=== PATIENT | male | born 1940 | race Two or more races ===

== ENCOUNTER 2017-03-14 19:15 | Inpatient (IN) | payer MEDICARE, MEDICAID ==
[~2017-03-14] VITALS: Ht 177.8 cm; Wt 59.9 kg
--- NOTE | 2017-03-14 19:20 | Emergency Room Report ---
History of Present Illness General Chief Complaint: Abnormal Labs Source: Patient, EMS Present Illness HPI Patient presents with complaints of right hip abscess Patient reports that over the past few days the area has become larger in size and more painful Patient denies any vomiting or diarrhea Denies any chest pain or shortness of breath Pain is 6/10 Unknown regarding recent or previous surgery Unknown regarding the source of infection Allergies: Coded Allergies: No Known Allergies (Unverified , 03/14/17) Patient History Past Medical History: see triage record Pertinent Family History: none Reviewed Nursing Documentation: PMH: Agreed, PSxH: Agreed Review of Systems All Other Systems: negative except mentioned in HPI Physical Exam Vital Signs Date Time Temp Pulse Resp B/P (MAP) Pulse Ox O2 Delivery O2 Flow Rate FiO2 03/14/17 19:08 98.1 86 18 129/66 99 Room Air Sp02 EP Interpretation: reviewed, normal General Appearance: no apparent distress Head: normocephalic, atraumatic Eyes: bilateral eye PERRL, bilateral eye EOMI ENT: hearing grossly normal, normal pharynx Neck: supple Respiratory: lungs clear, normal breath sounds Cardiovascular #1: normal peripheral pulses, regular rate, rhythm Gastrointestinal: non tender, other - Evidence of ascites mild distention Musculoskeletal: swelling - Swelling and erythema to the right external pelvic area, there is a large fluctuant area with pustule noted, area is approximately 8 x 4 cm Neurologic: alert, oriented x3 Skin: other - As above, large right-sided pelvic abscess Lymphatic: no adenopathy Medical Decision Making Diagnostic Impression: Primary Impression: Abscess Additional Impressions: Sepsis Renal failure Hyperkalemia ER Course Consideration for sepsis is made Patient's lactic acid is high and therefore severe sepsis also needs to be considered Patient's kidney function is elevated patient was provided with aggressive IV hydration antibiotics and provided Consultation is made with primary physician along with general surgery Labs Test 03/14/17 19:30 03/14/17 19:52 03/14/17 20:46 White Blood Count 14.4 K/UL (4.8-10.8) Red Blood Count 2.62 M/UL (4.70-6.10) Hemoglobin 8.1 G/DL (14.2-18.0) Hematocrit 25.3 % (42.0-52.0) Mean Corpuscular Volume 97 FL (80-99) Mean Corpuscular Hemoglobin 31.1 PG (27.0-31.0) Mean Corpuscular Hemoglobin Concent 32.2 G/DL (32.0-36.0) Red Cell Distribution Width 13.7 % (11.6-14.8) Platelet Count 106 K/UL (150-450) Mean Platelet Volume 8.3 FL (6.5-10.1) Neutrophils (%) (Auto) 84.1 % (45.0-75.0) Lymphocytes (%) (Auto) 7.5 % (20.0-45.0) Monocytes (%) (Auto) 7.5 % (1.0-10.0) Eosinophils (%) (Auto) 0.3 % (0.0-3.0) Basophils (%) (Auto) 0.6 % (0.0-2.0) Sodium Level 130 MMOL/L (136-145) Potassium Level 5.5 MMOL/L (3.5-5.1) Chloride Level 102 MMOL/L (98-107) Carbon Dioxide Level 20 MMOL/L (21-32) Anion Gap 8 mmol/L (5-15) Blood Urea Nitrogen 31 mg/dL (7-18) Creatinine 2.1 MG/DL (0.55-1.30) Estimat Glomerular Filtration Rate mL/min (>60) Glucose Level 172 MG/DL (74-106) Lactic Acid Level 3.30 mmol/L (0.66-2.22) Calcium Level 8.2 MG/DL (8.5-10.1) Total Bilirubin 0.8 MG/DL (0.2-1.0) Aspartate Amino Transf (AST/SGOT) 45 U/L (15-37) Alanine Aminotransferase (ALT/SGPT) 24 U/L (12-78) Alkaline Phosphatase 163 U/L (46-116) Total Creatine Kinase 58 U/L (26-308) Creatine Kinase MB 1.3 NG/ML (0.0-3.6) Creatine Kinase MB Relative Index 2.2 Troponin I 0.005 ng/mL (0.000-0.056) Total Protein 7.8 G/DL (6.4-8.2) Albumin 1.7 G/DL (3.4-5.0) Globulin 6.1 g/dL Albumin/Globulin Ratio 0.3 (1.0-2.7) Urine Color Yellow Urine Appearance Clear Urine pH 5 (4.5-8.0) Urine Specific [place] 1.010 (1.005-1.035) Urine Protein 2+ (NEGATIVE) Urine Glucose (UA) Negative (NEGATIVE) Urine Ketones 1+ (NEGATIVE) Urine Occult Blood 5+ (NEGATIVE) Urine Nitrite Negative (NEGATIVE) Urine Bilirubin Negative (NEGATIVE) Urine Urobilinogen Normal MG/DL (0.0-1.0) Urine Leukocyte Esterase 1+ (NEGATIVE) Urine RBC 10-15 /HPF (0 - 0) Urine WBC 5-10 /HPF (0 - 0) Urine Squamous Epithelial Cells Few /LPF (NONE/OCC) Urine Bacteria Occasional /HPF (NONE) Rhythm Strip Diag. Results EP Interpretation: yes Rate: 66 Rhythm: NSR, no PVC's, no ectopy Chest X-Ray Diagnostic Results Chest X-Ray Diagnostic Results : Chest X-Ray Ordered: Yes # of Views/Limited/Complete: 1 View Indication: Chest Pain EP Interpretation: Yes Interpretation: no consolidation, no effusion, no pneumothorax Impression: No acute disease Electronically Signed by: Edin Goodman, DO CT/MRI/US Diagnostic Results CT/MRI/US Diagnostic Results : Impression CT abdomen pelvis:Heterogeneous fluid collection right hip measures 2 x 4 cm area of possible infection versus hematoma versus complex fluid Last Vital Signs Date Time Temp Pulse Resp B/P (MAP) Pulse Ox O2 Delivery O2 Flow Rate FiO2 03/14/17 19:08 98.1 86 18 129/66 99 Room Air Status: improved Disposition: ADMITTED INPATIENT Condition: Serious EDIN GOODMAN D.O. Mar 14, 2017 19:20
[2017-03-14] MEDS ORDERED: Vancomycin 1 GM in NS 275 ML IV ONE (19:30)
[2017-03-14 19:42] VITALS: BP 112/58
[2017-03-14] MEDS ORDERED: NUTREN 2.0250 ML PO (19:46)
[2017-03-14] MEDS ORDERED: VITAMIN C500 M1 ORAL (19:46)
[2017-03-14] MEDS ORDERED: PANTOPRAZOLE SO40 MG ORAL (19:46)
[2017-03-14] MEDS ORDERED: CREON DR 12,001 EACH PO (19:46)
[2017-03-14] MEDS ORDERED: ZOLPIDEM TARTRAT5 MG ORAL (19:46)
[2017-03-14] MEDS ORDERED: NORCO 5-325 TA1 EAC1 ORAL (19:46)
[2017-03-14] MEDS ORDERED: ZOFRAN4 M3 ORAL (19:46)
[2017-03-14] MEDS ORDERED: TYLENOL325 MG ORAL (19:46)
[2017-03-14] MEDS ORDERED: CEPHALEXIN500 MG ORAL (19:46)
[2017-03-14] MEDS ORDERED: FERROUSUL325 M1 PO (19:46)
[2017-03-14] MEDS ORDERED: LEXAPRO10 MG ORAL (19:46)
[2017-03-14] MEDS ORDERED: DOCUSATE SODIU100 MG ORAL (19:46)
[2017-03-14 19:55] LABS: BASOPHILS % (AUTO) 0.6 % (0.0-2.0); EOSINOPHILS % (AUTO) 0.3 % (0.0-3.0); LYMPHOCYTES % (AUTO) 7.5 % (20.0-45.0); MEAN CORPUSCULAR HEMOGLOBIN 31.1 PG (27.0-31.0); MEAN CORPUSCULAR HGB CONC 32.2 G/DL (32.0-36.0); MEAN CORPUSCULAR VOLUME 97 FL (80-99); MEAN PLATELET VOLUME 8.3 FL (6.5-10.1); MONOCYTES % (AUTO) 7.5 % (1.0-10.0); NEUTROPHILS % (AUTO) 84.1 % (45.0-75.0); PLATELET COUNT 106 K/UL (150-450); RED BLOOD COUNT 2.62 M/UL (4.70-6.10); RED CELL DISTRIBUTION WIDTH 13.7 % (11.6-14.8); WHITE BLOOD COUNT 14.4 K/UL (4.8-10.8)
[2017-03-14 19:59] LABS: APPEARANCE,URINE CLEAR; KETONES,URINE 1+ (NEGATIVE); LEUKOCYTE ESTERASE ,URINE 1+ (NEGATIVE); NITRITE,URINE NEGATIVE (NEGATIVE); PH,URINE 5 (4.5-8.0); PROTEIN,URINE 2+ (NEGATIVE); UROBILINOGEN,URINE NORMAL MG/DL (0.0-1.0)
[2017-03-14] MEDS ORDERED: Vancomycin 1gm inj IVPB ONE (19:59)
[2017-03-14] MEDS ORDERED: Zolpidem 5mg tab ORAL PRN (20:00)
[2017-03-14 20:07] LABS: BACTERIA,URINE OCCASIONAL /HPF; SQUAMOUS EPITHELIAL CELL,UR FEW /LPF (NONE/OCC)
[2017-03-14] MEDS ORDERED: cefTRIAXone 1 GM in NS 55 ML IVPB ONE (20:15)
[2017-03-14 20:18] LABS: ALANINE AMINOTRANSFERASE 24 U/L (12-78); ALBUMIN/GLOBULIN RATIO 0.3 (1.0-2.7); ANION GAP 8 mmol/L (5-15); ASPARTATE AMINO TRANSFERASE 45 U/L (15-37); CALCIUM 8.2 MG/DL (8.5-10.1); CARBON DIOXIDE 20 MMOL/L (21-32); CHLORIDE 102 MMOL/L (98-107); CREATININE 2.1 MG/DL (0.55-1.30); POTASSIUM 5.5 MMOL/L (3.5-5.1); SODIUM 130 MMOL/L (136-145); TOTAL PROTEIN 7.8 G/DL (6.4-8.2)
[2017-03-14 20:27] LABS: CKMB 1.3 NG/ML (0.0-3.6)
[2017-03-14 20:37] LABS: REFLEX LACTIC ACID YES OR NO YES
[2017-03-14] MEDS ORDERED: Sodium Polystyrene Sulfonate 15gm Powder ORAL ONE (20:45)
[2017-03-14] MEDS ORDERED: METFORMIN HCL1000 M1 ORAL (21:02)
[2017-03-14] MEDS ORDERED: ESCITALOPRAM OX10 MG ORAL (21:03)
[2017-03-14 21:16] VITALS: BP 130/65
[2017-03-14 22:22] VITALS: BP 125/58
[2017-03-14 22:45] VITALS: BP 137/86
[2017-03-14] MEDS: Norco 5mg/325mg tab ORAL PRN (22:59)
[2017-03-15 04:00] VITALS: BP 104/60
[2017-03-15 08:00] VITALS: BP 121/56
[2017-03-15 09:35] LABS: INR 1.4 (0.9-1.1); PROTHROMBIN TIME 14.3 SEC (9.30-11.50)
[2017-03-15 09:38] LABS: AMMONIA 25 umol/L (11.2-31.7)
[2017-03-15 09:40] LABS: ALANINE AMINOTRANSFERASE 19 U/L (12-78); ALBUMIN/GLOBULIN RATIO 0.3 (1.0-2.7); ANION GAP 10 mmol/L (5-15); ASPARTATE AMINO TRANSFERASE 28 U/L (15-37); CALCIUM 7.9 MG/DL (8.5-10.1); CARBON DIOXIDE 20 MMOL/L (21-32); CHLORIDE 102 MMOL/L (98-107); MEAN CORPUSCULAR HEMOGLOBIN 31.7 PG (27.0-31.0); MEAN CORPUSCULAR HGB CONC 33.6 G/DL (32.0-36.0); MEAN CORPUSCULAR VOLUME 94 FL (80-99); MEAN PLATELET VOLUME 8.1 FL (6.5-10.1); PLATELET COUNT 101 K/UL (150-450); POTASSIUM 5.2 MMOL/L (3.5-5.1); RED BLOOD COUNT 2.36 M/UL (4.70-6.10); RED CELL DISTRIBUTION WIDTH 13.8 % (11.6-14.8); SODIUM 132 MMOL/L (136-145); WHITE BLOOD COUNT 11.5 K/UL (4.8-10.8)
[2017-03-15] MEDS: Docusate 100mg cap ORAL SCH ×2 (09:44→18:00)
[2017-03-15] MEDS: Ascorbic Acid 500mg tab ORAL SCH (09:45)
[2017-03-15 10:47] LABS: ANISOCYTOSIS 1+; BAND NEUTROPHILS % (MANUAL) 0 % (0-8); BASOPHILS % (MANUAL) 0 % (0-2); EOSINOPHILS % (MANUAL) 0 % (0-3); HYPOCHROMASIA 3+; LYMPHOCYTES % (MANUAL) 2 % (20-45); NEUTROPHILS % (MANUAL) 95 % (45-75); PLATELET ESTIMATE DECREASED; PLATELET MORPHOLOGY NORMAL; SPHEROCYTES 2+; TOTAL CELLS COUNTED 100
[2017-03-15] MEDS: Norco 5mg/325mg tab ORAL PRN ×2 (11:15→20:24)
[2017-03-15 12:00] VITALS: BP 121/72
--- NOTE | 2017-03-15 12:08 | Diagnostic Imaging Report ---
Indication: Abdominal pain Technique: Continuous helical transaxial imaging of the abdomen and pelvis was obtained from the lung bases to the pubic symphysis. No intravenous contrast was administered. Coronal 2-D reformats were also obtained. Automatic Exposure Control was utilized. Total Dose length Product (DLP): [address] Dose Index Volume (CTDIvol): 19.07, 0.15 mGy Comparison: none Findings: There is moderate amount ascites present. There is nodularity of the liver and splenomegaly. Cholecystectomy clips are present. Suggestion of portosystemic varices in the upper abdomen demonstrated. Lung bases are clear. Small hiatal hernia is present. There is a ovoid mass in the retroperitoneum just posterior to the right kidney slightly above the. The mass has a similar attenuation of solid organ but is not well by on this current study. This may be a mass or adenopathy. It could be arising from the superior pole the right kidney. Further evaluation recommended. Calcific foci within the parenchyma of the uncinate process and pancreatic head. In the lateral part of the right hip there is a heterogeneous mass which is probably a hematoma. Portions of it are hyperdense. Portions of it are more fluid density and mixed density and this is seen in the subcutaneous space lateral to the muscles in the hip. There is no obvious fracture of the right hip or other structures. There is a small right inguinal hernia containing ascites. Diverticula noted in the colon. Aorta is moderately calcified. There is no hydronephrosis. Small retroperitoneal nodes are present. Diffuse mesenteric stranding noted. Moderate degenerative changes of the spine demonstrated. Impression: Superficial hematoma suspected lateral to the right hip. No obvious fracture of the right hip or other structures are definite seen on this examination. Moderate ascites associated with a cirrhosis of the liver. Moderate splenomegaly and evidence of portosystemic varices indicative of portal hypertension. Status post cholecystectomy Chronic calcific pancreatitis in the area of the pancreatic head and uncinate process. Atherosclerotic disease. Diverticulosis of the colon. [facility] has communicated the preliminary results to the Emergency Department. Their findings are largely concordant with this report. The CT scanner at [facility] is accredited by the [employer] and the scans are performed using dose optimization techniques as appropriate to a performed exam including Automatic Exposure control.
--- NOTE | 2017-03-15 13:01 | Diagnostic Imaging Report ---
Indication: Chest pain Comparison: None A single view chest radiograph was obtained. Findings: Heart is normal in size. Lung lines are low. Bones are osteopenic. There are surgical clips in the right side of abdomen. Impression: Query mild interstitial edema.
[2017-03-15] MEDS ORDERED: D5 1/2NS 1,000 ML IV SCH (15:30)
[2017-03-15 16:00] VITALS: BP 113/65
--- NOTE | 2017-03-15 17:04 | Anethesia Preoperative Eval ---
Anesthesia Pre-op PMH/ROS General Date of Evaluation: Mar 15, 2017 Time of Evaluation: 16:59 Anesthesiologist: Jona ASA Score: ASA 4 Mallampati Score Class I : Soft palate, uvula, fauces, pillars visible Class II: Soft palate, uvula, fauces visible Class III: Soft palate, base of uvula visible Class IV: Only hard plate visible Mallampati Classification: Class III Surgeon: Camron Diagnosis: R hip abscess Surgical Procedure: I&D of R hip abscess Anesthesia History: none Social History: smoking - h/o, alcohol use - h/o abuse, drug use - posible IVDA Family History: no anesthesia problems Allergies: Coded Allergies: No Known Allergies (Unverified , 03/14/17) Medications: see eMAR Past Medical History Cardiovascular: Reports: HTN, Denies: CAD, [place], valve dz, arrhythmia, other Pulmonary: Denies: asthma, COPD, CHARBEL, other Gastrointestinal/Genitourinary: Reports: GERD, CRI - acute vs chronic renal failure, other - liver cirrosis with ascitis, Denies: ESRD Neurologic/Psychiatric: Reports: depression/anxiety, Denies: dementia, CVA, TIA, other Endocrine: Reports: DM, hypothyroidism, Denies: steroids, other Hematology/Immune: Reports: anemia - of chronic d-s,, bleeding disorder - thrombocitopenia splenomegaly, Denies: DVT, other Musculoskeletal/Integumentary: Reports: DJD, Denies: OA, RA, DDD, edema, other Other: other - malnourished PMH Narrative: as above PSxH Narrative: cholecystectomy Anesthesia Pre-op Phys. Exam Physician Exam Last Vital Signs Date Time Temp Pulse Resp B/P (MAP) Pulse Ox O2 Delivery O2 Flow Rate FiO2 03/15/17 16:00 97.2 65 18 113/65 98 Room Air Constitutional: NAD Neurologic: CN 2-12 intact Cardiovascular: RRR, no M/R/G Respiratory: CTA Gastrointestinal: other - distended slightly tender on palpation Airway Exam Mallampati Score: Class III MO: limited Neck: stiff ROM: limited Teeth: missing Dentures: no upper, no lower Anesthesia Pre-op A/P Labs Hematology Test 03/14/17 19:30 03/15/17 09:10 White Blood Count 14.4 K/UL (4.8-10.8) H 11.5 K/UL (4.8-10.8) H Red Blood Count 2.62 M/UL (4.70-6.10) L 2.36 M/UL (4.70-6.10) L Hemoglobin 8.1 G/DL (14.2-18.0) L 7.5 G/DL (14.2-18.0) L Hematocrit 25.3 % (42.0-52.0) L 22.3 % (42.0-52.0) L Mean Corpuscular Volume 97 FL (80-99) 94 FL (80-99) Mean Corpuscular Hemoglobin 31.1 PG (27.0-31.0) H 31.7 PG (27.0-31.0) H Mean Corpuscular Hemoglobin Concent 32.2 G/DL (32.0-36.0) 33.6 G/DL (32.0-36.0) Red Cell Distribution Width 13.7 % (11.6-14.8) 13.8 % (11.6-14.8) Platelet Count 106 K/UL (150-450) L 101 K/UL (150-450) L Mean Platelet Volume 8.3 FL (6.5-10.1) 8.1 FL (6.5-10.1) Neutrophils (%) (Auto) 84.1 % (45.0-75.0) H % (45.0-75.0) Lymphocytes (%) (Auto) 7.5 % (20.0-45.0) L % (20.0-45.0) Monocytes (%) (Auto) 7.5 % (1.0-10.0) % (1.0-10.0) Eosinophils (%) (Auto) 0.3 % (0.0-3.0) % (0.0-3.0) Basophils (%) (Auto) 0.6 % (0.0-2.0) % (0.0-2.0) Differential Total Cells Counted 100 Neutrophils % (Manual) 95 % (45-75) H Lymphocytes % (Manual) 2 % (20-45) L Monocytes % (Manual) 3 % (1-10) Eosinophils % (Manual) 0 % (0-3) Basophils % (Manual) 0 % (0-2) Band Neutrophils 0 % (0-8) Platelet Estimate Decreased L Platelet Morphology Normal Hypochromasia 3+ Anisocytosis 1+ Spherocytes 2+ Coagulation Test 03/15/17 09:10 Prothrombin Time 14.3 SEC (9.30-11.50) H Prothromb Time International Ratio 1.4 (0.9-1.1) H Activated Partial Thromboplast Time 36 SEC (23-33) H Chemistry Test 03/14/17 19:30 03/14/17 20:46 03/15/17 09:10 Sodium Level 130 MMOL/L (136-145) L 132 MMOL/L (136-145) L Potassium Level 5.5 MMOL/L (3.5-5.1) H 5.2 MMOL/L (3.5-5.1) H Chloride Level 102 MMOL/L (98-107) 102 MMOL/L (98-107) Carbon Dioxide Level 20 MMOL/L (21-32) L 20 MMOL/L (21-32) L Anion Gap 8 mmol/L (5-15) 10 mmol/L (5-15) Blood Urea Nitrogen 31 mg/dL (7-18) H 30 mg/dL (7-18) H Creatinine 2.1 MG/DL (0.55-1.30) H 2.0 MG/DL (0.55-1.30) H Estimat Glomerular Filtration Rate mL/min (>60) mL/min (>60) Glucose Level 172 MG/DL (74-106) H 231 MG/DL (74-106) H Lactic Acid Level 3.30 mmol/L (0.66-2.22) H 2.00 mmol/L (0.66-2.22) Calcium Level 8.2 MG/DL (8.5-10.1) L 7.9 MG/DL (8.5-10.1) L Total Bilirubin 0.8 MG/DL (0.2-1.0) 0.7 MG/DL (0.2-1.0) Aspartate Amino Transf (AST/SGOT) 45 U/L (15-37) H 28 U/L (15-37) Alanine Aminotransferase (ALT/SGPT) 24 U/L (12-78) 19 U/L (12-78) Alkaline Phosphatase 163 U/L (46-116) H 147 U/L (46-116) H Total Creatine Kinase 58 U/L (26-308) Creatine Kinase MB 1.3 NG/ML (0.0-3.6) Creatine Kinase MB Relative Index 2.2 Troponin I 0.005 ng/mL (0.000-0.056) Total Protein 7.8 G/DL (6.4-8.2) 7.0 G/DL (6.4-8.2) Albumin 1.7 G/DL (3.4-5.0) L 1.6 G/DL (3.4-5.0) L Globulin 6.1 g/dL 5.4 g/dL Albumin/Globulin Ratio 0.3 (1.0-2.7) L 0.3 (1.0-2.7) L Ammonia 25 umol/L (11.2-31.7) Risk Assessment & Plan Assessment: ASA 4 Plan: GA with LMA Pre-Antibiotics Drug: as scheduled GABBY LOPES M.D. Mar 15, 2017 17:04
[2017-03-15 20:00] VITALS: BP 129/76
[2017-03-15] MEDS ORDERED: Vancomycin 750mg/NS 250ml 250 ML IVPB SCH (20:00)
--- NOTE | 2017-03-15 21:30 | Consultation ---
DATE OF CONSULTATION: 03/15/2017 PREOPERATIVE CONSULTATION CONSULTING PHYSICIAN: Puja Lyon M.D. REASON FOR CONSULTATION: Abscess of the right hip. HISTORY OF PRESENT ILLNESS: This is a 76-year-old male, who presented to emergency room complaining of the pain and swelling at the right hip for few days. Apparently, it has been draining for few days. He denies fever or chills. He denies any previous history of similar episode. PAST MEDICAL HISTORY: He denies allergies, asthma, diabetes, and cardiac and renal diseases. He has a history of hypertension and cirrhosis of the liver. PAST SURGICAL HISTORY: Surgeries include open cholecystectomy. MEDICATIONS: Please see the medicine reconciliation form. SOCIAL HISTORY: The patient is a 76-year-old male, resident of a detention, who is and father of three children. He claims that he quit drinking one year ago. He does claim that he does not smoke. REVIEW OF SYSTEMS: He complains of weakness. He is unable to get out of the bed and he had weight loss. PHYSICAL EXAMINATION: GENERAL: The patient appeared to be a cachectic 76-year-old male, lying on the gurney, in no acute distress. HEENT: Head is normocephalic and atraumatic. Eyes, pupils are equal and sluggish reaction to light. Mouth is clear, but dry. NECK: There is no palpable thyromegaly or adenopathy. CHEST: Clear to auscultation and percussion. HEART: There is no gallop or murmur. S1 and S2 are within normal limits. ABDOMEN: He has a very large ascites and he has scar of the two incisions in the right upper quadrant. There is no palpable organomegaly. There is no tenderness. GENITAL: He has indwelling Cabello catheter. EXTREMITIES: At the right hip, he has a large abscess, which has been draining. LABORATORY DATA: CBC has shown a WBC of 14,400 with a left shift, but hemoglobin is 8.1 g and hematocrit is 25%. Chemistry shown a potassium of 5.5, glucose of 172, creatinine of 2.1 with a BUN of 31, and the rest of it is within normal limits. ASSESSMENT: Abscess of the right hip. PLAN: The patient has been scheduled for the incision and drainage of the abscess of the right hip. The risks and benefits have been explained to him. He understood and granted consent. Puja Lyon M.D. DR: ALLISON JOB#: [id number] CC:
[2017-03-15 23:34] LABS: APPEARANCE,URINE CLEAR; KETONES,URINE NEGATIVE (NEGATIVE); LEUKOCYTE ESTERASE ,URINE NEGATIVE (NEGATIVE); NITRITE,URINE NEGATIVE (NEGATIVE); PH,URINE 6 (4.5-8.0); PROTEIN,URINE 1+ (NEGATIVE); UROBILINOGEN,URINE NORMAL MG/DL (0.0-1.0)
[2017-03-15 23:54] LABS: RBC,URINE 30-40 /HPF (0 - 0)
[2017-03-15 23:55] LABS: WBC,URINE 0-2 /HPF (0 - 0)
[2017-03-16] VITALS (16 sets, daily range): BP systolic 108–138; BP diastolic 54–87
[2017-03-16] MEDS: Norco 5mg/325mg tab ORAL PRN (01:47)
[2017-03-16 07:10] LABS: BASOPHILS % (AUTO) 0.8 % (0.0-2.0); EOSINOPHILS % (AUTO) 1.5 % (0.0-3.0); LYMPHOCYTES % (AUTO) 6.8 % (20.0-45.0); MEAN CORPUSCULAR HEMOGLOBIN 29.8 PG (27.0-31.0); MEAN CORPUSCULAR HGB CONC 31.4 G/DL (32.0-36.0); MEAN CORPUSCULAR VOLUME 95 FL (80-99); MEAN PLATELET VOLUME 8.3 FL (6.5-10.1); MONOCYTES % (AUTO) 6.4 % (1.0-10.0); NEUTROPHILS % (AUTO) 84.5 % (45.0-75.0); PLATELET COUNT 104 K/UL (150-450); RED BLOOD COUNT 2.72 M/UL (4.70-6.10); RED CELL DISTRIBUTION WIDTH 16.7 % (11.6-14.8); WHITE BLOOD COUNT 8.4 K/UL (4.8-10.8)
--- NOTE | 2017-03-16 07:30 | History and Physical Report ---
DATE OF ADMISSION: 03/14/2017 CHIEF COMPLAINT AND REASON FOR HOSPITALIZATION: The patient is a 76-year-old man with cirrhosis and COPD, admitted with abscess right hip. HISTORY OF PRESENT ILLNESS: The patient has cirrhosis and ascites and was recently in another hospital, transferred to an extended care facility for rehab as he had difficulty walking. He has peripheral neuropathy. He has developed a hematoma and abscess lateral to the right hip and due to pain was sent to the emergency room. He has had a chronic anemia, likely iron deficiency, and had recent transfusion at another hospital and recent GI workup. PAST SURGICAL HISTORY: Gallbladder. ALLERGIES: None known. CURRENT MEDICATIONS: Aldactone 50 mg b.i.d., Creon 1 capsule with meals, DSS 100 mg b.i.d., Lexapro 5 mg daily, ferrous sulfate 325 mg b.i.d., Keflex 500 mg t.i.d., Cuddy p.r.n., Protonix 40 mg daily, Pro-Stat 30 mL daily, Tylenol p.r.n., vitamin C 500 mg daily, Zofran 4 mg p.r.n., and zolpidem 5 mg at bedtime p.r.n. HABITS: He has been a smoker most of his adult life. He has had a history of alcoholism. SYSTEM REVIEW: HEAD, EYES, EARS, NOSE, AND THROAT: Vision and hearing are good. ENDOCRINE: No known diabetes or thyroid disease. PULMONARY: History of COPD and bronchospasm. He still smokes. CARDIAC: No angina, [place], arrhythmias, or CHF. GASTROINTESTINAL: History of chronic ascites and cirrhosis and some chronic abdominal pain. Recent GI evaluation. He is on Protonix. GENITOURINARY: No dysuria, hematuria, or kidney stones. NEUROLOGIC: No CVA, syncope, or seizures. He has peripheral neuropathy with numbness and pain in the feet. MUSCULOSKELETAL: History of generalized weakness and mild joint pain. PHYSICAL EXAMINATION: GENERAL: The patient is a thin, chronically ill-appearing man, looking uncomfortable in bed. VITAL SIGNS: Temperature 98.2, pulse 86, respirations 18, and and blood pressure 121/56. HEAD, EYES, EARS, NOSE, AND THROAT: Oral mucosa slightly dry. Ocular motions intact in all directions. There is no scleral icterus. NECK: No adenopathy. LUNGS: Clear. Distant breath sounds. HEART: Rhythm is regular. I hear no murmur. ABDOMEN: Moderate ascites. Liver is about 2 cm below the right costal margin. I am unable to feel the spleen. EXTREMITIES: Trace edema and moderate muscle wasting. SKIN: There is a hematoma with erythema of right lateral hip with a whitish eschar over the outer surface. NEUROLOGIC: He is alert and oriented. Cranial nerves are intact. He moves all extremities. PERTINENT LABORATORY DATA: Sodium 132, potassium 5.2, BUN 30, creatinine 2, and glucose is 231. White count 11.5 and hemoglobin 7.5. INR 1.4. IMPRESSION: 1. Hematoma and abscess lateral to the right hip. 2. Cirrhosis with ascites. 3. Acute kidney injury secondary to diuretics and possible hepatorenal syndrome. 4. Coagulopathy vitamin K. 5. Chronic obstructive pulmonary disease. PLAN: The patient will have surgical consultation. He has been started on vancomycin and comfort measures. I will hold his diuretics for right now, but he likely will need them again. Chano Cramer M.D. DR: LISA JOB#: [id number] CC:
[2017-03-16 07:32] LABS: ANION GAP 10 mmol/L (5-15); CALCIUM 7.8 MG/DL (8.5-10.1); CARBON DIOXIDE 18 MMOL/L (21-32); CHLORIDE 105 MMOL/L (98-107); CREATININE 1.9 MG/DL (0.55-1.30); POTASSIUM 4.6 MMOL/L (3.5-5.1); SODIUM 132 MMOL/L (136-145)
[2017-03-16] MEDS: Docusate 100mg cap ORAL SCH ×2 (08:36→18:34)
[2017-03-16] MEDS: Ascorbic Acid 500mg tab ORAL SCH (08:37)
--- NOTE | 2017-03-16 09:19 | General Progress Note ---
Assessment/Plan Problem List: (1) Iron deficiency anemia ICD Codes: D50.9 - Iron deficiency anemia, unspecified SNOMED: 47101928 (2) COPD (chronic obstructive pulmonary disease) ICD Codes: J44.9 - Chronic obstructive pulmonary disease, unspecified SNOMED: 99768488 (3) Ascites ICD Codes: R18.8 - Other ascites SNOMED: 206740531 (4) Cirrhosis with alcoholism ICD Codes: K70.30 - Alcoholic cirrhosis of liver without ascites SNOMED: 671367782 (5) Abscess ICD Codes: L02.91 - Cutaneous abscess, unspecified SNOMED: 514994799 (6) Renal failure ICD Codes: N19 - Unspecified kidney failure SNOMED: 29245434 (7) Hyperkalemia ICD Codes: E87.5 - Hyperkalemia SNOMED: 34328944 Assessment/Plan transfusion ordered , venofer, stable for surgery Subjective Constitutional: Reports: weakness HEENT: Reports: no symptoms Cardiovascular: Reports: no symptoms Respiratory: Reports: cough Gastrointestinal/Abdominal: Reports: other - ascites Neurologic/Psychiatric: Reports: tingling, weakness Endocrine: Reports: no symptoms Hematologic/Lymphatic: Reports: anemia Allergies: Coded Allergies: No Known Allergies (Unverified , 03/14/17) Objective Last 24 Hour Vital Signs Date Time Temp Pulse Resp B/P (MAP) Pulse Ox O2 Delivery O2 Flow Rate FiO2 03/16/17 09:09 98.4 75 19 125/73 99 Room Air 03/16/17 04:00 97.7 79 19 113/57 98 Room Air 03/16/17 02:46 97.9 03/16/17 00:00 97.9 87 19 116/72 98 Room Air 03/15/17 20:00 98.1 78 18 129/76 100 Room Air 03/15/17 16:00 97.2 65 18 113/65 98 Room Air 03/15/17 12:00 98.0 77 18 121/72 96 Room Air Intake and Output 03/16/17 03/17/17 19:00 07:00 # Voids 1 # Bowel Movements 1 Laboratory Tests 03/15/17 18:10: Random Vancomycin Level 6.2 03/15/17 21:55: Urine Color Pale yellow, Urine Appearance Clear, Urine pH 6, Urine Specific [place] 1.010, Urine Protein 1+H, Urine Glucose (UA) Negative, Urine Ketones Negative, Urine Occult Blood 3+H, Urine Nitrite Negative, Urine Bilirubin Negative, Urine Urobilinogen Normal, Urine Leukocyte Esterase Negative, Urine RBC 30-40H, Urine WBC 0-2, Urine Squamous Epithelial Cells None, Urine Bacteria None, Urine Random Sodium 46, Urine Creatinine 57.5 03/16/17 06:05: White Blood Count 8.4, Red Blood Count 2.72L, Hemoglobin 8.1L, Hematocrit 25.8L , Mean Corpuscular Volume 95, Mean Corpuscular Hemoglobin 29.8, Mean Corpuscular Hemoglobin Concent 31.4L, Red Cell Distribution Width 16.7H, Platelet Count 104L, Mean Platelet Volume 8.3, Neutrophils (%) (Auto) 84.5H, Lymphocytes (%) (Auto) 6.8L, Monocytes (%) (Auto) 6.4, Eosinophils (%) (Auto) 1.5, Basophils (%) (Auto) 0.8, Sodium Level 132L, Potassium Level 4.6, Chloride Level 105, Carbon Dioxide Level 18L, Anion Gap 10, Blood Urea Nitrogen 29H, Creatinine 1.9H, Estimat Glomerular Filtration Rate , Glucose Level 167H, Calcium Level 7.8L Height (Feet): 5 Height (Inches): 10.00 Weight (Pounds): 132 General Appearance: alert EENT: normal ENT inspection Neck: normal alignment Cardiovascular: normal rate, regular rhythm Respiratory/Chest: lungs clear Abdomen: hepatomegaly, other - scites Edema: no edema noted Arm (L), no edema noted Arm (R), no edema noted Leg (L), no edema noted Leg (R), no edema noted Pedal (L), no edema noted Pedal (R), no edema noted Generalized 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
[2017-03-16] MEDS: D5 1/2NS 1,000 ML IV SCH ×2 (10:00→16:00)
[2017-03-16] MEDS ORDERED: Bacitracin 50000 Units Vial ONE (10:47)
[2017-03-16] MEDS ORDERED: NeoSporin Gu Irrig 1ml Amp IRRIG ONE (10:47)
[2017-03-16] MEDS ORDERED: LR 1000ml 1,000 ML IVLG SCH (11:33)
[2017-03-16] MEDS ORDERED: DiphenhydrAMINE 50mg/ml Inj IVP PRN (11:45)
[2017-03-16] MEDS ORDERED: Midazolam 2mg/2ml Inj IVP PRN (11:45)
[2017-03-16] MEDS ORDERED: LORazepam Inj 2mg/ml 1ml IV PRN (11:45)
[2017-03-16] MEDS ORDERED: oxyCODONE HCL/Acetaminophen 5/325mg ORAL PRN (11:45)
[2017-03-16] MEDS ORDERED: Ketorolac 30mg Inj IV PRN (11:45)
[2017-03-16] MEDS ORDERED: Norco 7.5mg/325mg tab ORAL PRN (11:45)
[2017-03-16] MEDS ORDERED: fentaNYL 100 mcg/2 mL IV PRN (11:45)
[2017-03-16] MEDS ORDERED: Norco 5mg/325mg tab ORAL PRN (11:45)
[2017-03-16] MEDS ORDERED: Hydromorphone 0.5mg/0.5ml inj IVP PRN (11:45)
[2017-03-16] MEDS ORDERED: Ketorolac 60mg Inj IM PRN (11:45)
[2017-03-16] MEDS ORDERED: Metoclopramide 10mg/2ml Inj IVP PRN (11:45)
[2017-03-16] MEDS ORDERED: Atropine Inj 1mg/10ml Syr IV PRN (11:45)
--- NOTE | 2017-03-16 11:46 | Immediate Post-Op Evaluation ---
Immediate Post-Op Evalulation Immediate Post-Op Evalulation Procedure: I and D R Hip Abcess Date of Evaluation: Mar 16, 2017 Time of Evaluation: 13:32 IV Fluids: 250 NS Blood Products: 0 Estimated Blood Loss: 50 Urinary Output: 0 Blood Pressure Systolic: 129 Blood Pressure Diastolic: 80 Pulse Rate: 74 Respiratory Rate: 16 O2 Sat by Pulse Oximetry: 100 Temperature (Fahrenheit): 98.1 Pain Score (1-10): 2 Nausea: No Vomiting: No Complications 0 Patient Status: awake, reacts, patent, none Hydration Status: adequate Drug: Already On From Floor Terrell Connelly MD Mar 16, 2017 11:46
[2017-03-16] MEDS ORDERED: Propofol 200mg/20ml IV ONE (11:54)
[2017-03-16] MEDS ORDERED: LR 1000ml ONE (11:54)
[2017-03-16] MEDS ORDERED: Lidocaine 1% MPF 10mg/ml 5ml ONE (11:54)
[2017-03-16] MEDS ORDERED: Midazolam 2mg/2ml Inj ONE (11:54)
[2017-03-16] MEDS ORDERED: ePHEDrine 50mg/ml Inj ONE (12:00)
[2017-03-16] MEDS ORDERED: Alfentanil 2ml Inj ONE (12:00)
[2017-03-16] MEDS ORDERED: Metoprolol 5mg/5ml Inj ONE (12:00)
[2017-03-16] MEDS ORDERED: Sodium Chloride 10ml vial INJ ONE (12:00)
[2017-03-16] MEDS ORDERED: NS Irrig 1000ml ONE (12:00)
[2017-03-16] MEDS ORDERED: Sterile Water Irrig 1000ml IRRIG ONE (12:00)
--- NOTE | 2017-03-16 12:26 | Pre-Procedure Note/Attestation ---
Pre-Procedure Note/Attestation Complete Prior to Procedure Planned Procedure: right Procedure Narrative: I&D of abscess right hip Indications for Procedure Pre-Operative Diagnosis: Abscess right hip Attestation I attest that I discussed the nature of the procedure; its benefits; risks and complications; and alternatives (and the risks and benefits of such alternatives ), prior to the procedure, with the patient (or the patient's legal payroll representative). I attest that, if there was a reasonable possibility of needing a blood transfusion, the patient (or the patient's legal payroll representative) was given the [facility] standardized written summary, pursuant to the Chaz Mor Blood Safety Act ([place] Health and Safety Code # 1645, as amended). I attest that I re-evaluated the patient just prior to the surgery and that there has been no change in the patient's H&P, except as documented below: TINY WATSON Mar 16, 2017 12:26
--- NOTE | 2017-03-16 13:13 | Brief Operative Note ---
Immediate Post Operative Note Operative Note Pre-op Diagnosis: Abscess right hip Procedure: I&D of abscesses Post-op Diagnosis: Abscess right hip X 2 Post-op Diagnosis: same as pre-op Surgeon: Yvonne Nurse Technician: none Anesthesiologist: Dr. Barbosa Anesthesia: general Specimen: yes Complications: none Condition: stable Fluids: per anesthiasologist Estimated Blood Loss: volume - 20 ml Packing: Betadine soaked sponge Implant(s) used?: No TINY WATSON Mar 16, 2017 13:13
[2017-03-16] MEDS ORDERED: HYDROmorphone 1mg/ml Carpuject IVP PRN (13:15)
[2017-03-16] MEDS ORDERED: D5 1/2NS 1,000 ML IV SCH ×2 (13:15)
[2017-03-16] MEDS ORDERED: traMADol 50mg tab ORAL PRN (13:15)
--- NOTE | 2017-03-16 14:47 | Diagnostic Imaging Report ---
Indication: Line placement Comparison: 03/14/17 A single view chest radiograph was obtained. Findings: Lung volumes are low. There is a right jugular line in good position. Bones are osteopenic. Impression: Right jugular line in good position. No pneumothorax
--- NOTE | 2017-03-16 18:30 | Operative Note - Dictated ---
DATE OF OPERATION: 03/16/2017 PREOPERATIVE DIAGNOSIS: Abscess of the right hip. POSTOPERATIVE DIAGNOSIS: Abscess x2 of the right hip. OPERATION: Incision and drainage of the abscesses. COMPLICATIONS: None. SURGEON: Puja Lyon M.D. TEACHER HEARING IMPAIRED: None. ANESTHESIA: General with laryngeal mask. ANESTHESIOLOGIST: Terrell Connelly M.D. INDICATION: This is a 76-year-old male, who presented with swelling, pain, and drainage from the right hip. The patient could not give accurate history, but he claimed that he has been having drainage for two to three days. Physical examination showed a partially drained abscess at the right hip, which had two openings. A large amount of pus was draining, and besides, he had erythema of the area. CBC on admission showed a WBC of 14,000 with a left shift. DESCRIPTION OF PROCEDURE: The patient was placed supine on the operating table and after general anesthesia with laryngeal mask, he was placed in the left decubitus position and the right hip was properly prepped and draped. Initially, culture was obtained from the pus and was submitted to the lab and then exploration was performed, which showed two openings on the area of the hip. The posterior one was approached initially and this opening was extended. A large amount of pus was drained, and then the necrotic tissue seen and subcutaneous tissue in this area was removed and the cavity was completely exposed. All the necrotic tissue was removed. The bleeding points were controlled with the Bovie and the cavity was irrigated with antibiotic solution. At the next step, attention was given to the opening on the anterior, which was small, but when it was extended, it was noticed that this was deep between the muscle and the tendons and the cavity was unroofed and the pus was drained. The bleeding points were controlled and then the cavity was irrigated with antibiotic solution. It should be noted that the posterior cavity extended up to the bone, but the anterior one as I explained was between the muscles and tendon. Both cavities were irrigated with antibiotic solution and then it was packed with Betadine-soaked sponge. The patient tolerated the procedure very well and was transferred to recovery room in stable condition and extubated. The sponge and needle count correct. Estimated blood loss 20 mL. Condition of the patient at the end of procedure is stable. Puja Lyon M.D. DR: RODNEY JOB#: [id number] CC:
[2017-03-16] MEDS: Vancomycin 500 MG in NS 110 ML IVPB SCH (19:57)
[2017-03-16] MEDS: Iron Sucrose 100 MG in NS 55 ML IV SCH ×2 (20:28→20:58)
[2017-03-17] VITALS: BP 102/71
[2017-03-17 04:00] VITALS: BP 122/71
[2017-03-17] MEDS: D5 1/2NS 1,000 ML IV SCH (06:00)
[2017-03-17 07:52] VITALS: BP 131/81
--- NOTE | 2017-03-17 07:56 | General Progress Note ---
Assessment/Plan Problem List: (1) Iron deficiency anemia ICD Codes: D50.9 - Iron deficiency anemia, unspecified SNOMED: 07705153 (2) COPD (chronic obstructive pulmonary disease) ICD Codes: J44.9 - Chronic obstructive pulmonary disease, unspecified SNOMED: 23843089 (3) Ascites ICD Codes: R18.8 - Other ascites SNOMED: 573153672 (4) Cirrhosis with alcoholism ICD Codes: K70.30 - Alcoholic cirrhosis of liver without ascites SNOMED: 632928769 (5) Abscess ICD Codes: L02.91 - Cutaneous abscess, unspecified SNOMED: 475310242 (6) Renal failure ICD Codes: N19 - Unspecified kidney failure SNOMED: 83055686 (7) Hyperkalemia ICD Codes: E87.5 - Hyperkalemia SNOMED: 75679747 Assessment/Plan g- rods, zosyn and vanco , wound care, trend lab Subjective Constitutional: Reports: weakness HEENT: Reports: no symptoms Cardiovascular: Reports: no symptoms Respiratory: Reports: no symptoms Gastrointestinal/Abdominal: Reports: other - ascites Genitourinary: Reports: no symptoms Neurologic/Psychiatric: Reports: weakness Endocrine: Reports: no symptoms Hematologic/Lymphatic: Reports: anemia Allergies: Coded Allergies: No Known Allergies (Unverified , 03/14/17) Objective Last 24 Hour Vital Signs Date Time Temp Pulse Resp B/P (MAP) Pulse Ox O2 Delivery O2 Flow Rate FiO2 03/17/17 07:52 97.7 92 18 131/81 96 Room Air 03/17/17 04:00 97.7 83 19 122/71 94 Room Air 03/17/17 00:00 97.3 81 18 102/71 97 Room Air 03/16/17 20:08 97.6 70 17 126/67 98 Room Air 03/16/17 15:35 98.4 77 20 121/79 96 Nasal Cannula 3.0 03/16/17 14:32 98.4 67 19 119/75 99 Nasal Cannula 3.0 03/16/17 14:20 98.8 66 14 127/76 100 Nasal Cannula 3.0 03/16/17 14:17 98.2 03/16/17 14:10 68 16 126/82 100 Nasal Cannula 3.0 03/16/17 13:55 67 15 130/80 100 Nasal Cannula 3.0 03/16/17 13:47 69 18 138/80 100 Nasal Cannula 3.0 03/16/17 13:40 70 16 124/84 100 Nasal Cannula 3.0 03/16/17 13:30 72 16 134/85 100 Simple Mask 6.0 03/16/17 13:26 74 14 134/87 100 Simple Mask 6.0 03/16/17 13:21 98.1 80 13 129/80 100 Simple Mask 6.0 03/16/17 13:20 74 16 100 03/16/17 11:17 97.2 70 18 110/63 97 Room Air 03/16/17 11:00 97.5 71 18 108/54 96 Room Air 03/16/17 09:09 98.4 75 19 125/73 99 Room Air Height (Feet): 5 Height (Inches): 10.00 Weight (Pounds): 132 General Appearance: no apparent distress, thin EENT: normal ENT inspection Neck: non-tender Cardiovascular: normal rate, regular rhythm Respiratory/Chest: lungs clear Abdomen: non tender, other - ascites Edema: no edema noted Arm (L), no edema noted Arm (R), no edema noted Leg (L), no edema noted Leg (R), no edema noted Pedal (L), no edema noted Pedal (R), no edema noted 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
[2017-03-17] MEDS ORDERED: Hydromorphone 0.5mg/0.5ml inj IVP PRN (08:15)
[2017-03-17] MEDS: Docusate 100mg cap ORAL SCH ×3 (08:27→17:07)
[2017-03-17] MEDS: Ascorbic Acid 500mg tab ORAL SCH (08:27)
[2017-03-17] MEDS: Norco 5mg/325mg tab ORAL PRN ×3 (08:31→20:54)
[2017-03-17 08:37] LABS: BASOPHILS % (AUTO) 1.3 % (0.0-2.0); EOSINOPHILS % (AUTO) 1.5 % (0.0-3.0); LYMPHOCYTES % (AUTO) 9.6 % (20.0-45.0); MEAN CORPUSCULAR HEMOGLOBIN 29.5 PG (27.0-31.0); MEAN CORPUSCULAR VOLUME 95 FL (80-99); MEAN PLATELET VOLUME 6.9 FL (6.5-10.1); MONOCYTES % (AUTO) 6.8 % (1.0-10.0); NEUTROPHILS % (AUTO) 80.9 % (45.0-75.0); PLATELET COUNT 129 K/UL (150-450); RED BLOOD COUNT 3.35 M/UL (4.70-6.10); RED CELL DISTRIBUTION WIDTH 16.7 % (11.6-14.8)
[2017-03-17 08:51] LABS: ANION GAP 8 mmol/L (5-15); CALCIUM 8.3 MG/DL (8.5-10.1); CARBON DIOXIDE 19 MMOL/L (21-32); CHLORIDE 105 MMOL/L (98-107); CREATININE 1.8 MG/DL (0.55-1.30); POTASSIUM 5.1 MMOL/L (3.5-5.1); SODIUM 132 MMOL/L (136-145)
[2017-03-17] MEDS ORDERED: Piperacillin/Tazobactam 3.375 GM in D5W 110 ML IVPB SCH (09:00)
[2017-03-17] MEDS: Zosyn 3.375gm/50ml Premix 50 ML IVPB SCH ×2 (09:43→17:17)
[2017-03-17] MEDS ORDERED: Tubing IV Secondary IV ONE (11:18)
[2017-03-17] MEDS ORDERED: D5 1/2NS 1000ml IV ONE (11:18)
[2017-03-17 12:00] VITALS: BP 126/75
--- NOTE | 2017-03-17 13:11 | General Surgery Progress Note ---
General Surgery-Progress Note Subjective Procedure Performed I&D of abscesses Symptoms: improved Objective Last 24 Hour Vital Signs Date Time Temp Pulse Resp B/P (MAP) Pulse Ox O2 Delivery O2 Flow Rate FiO2 03/17/17 12:00 97.7 20 126/75 98 Room Air 03/17/17 09:30 97.7 03/17/17 07:52 97.7 92 18 131/81 96 Room Air 03/17/17 04:00 97.7 83 19 122/71 94 Room Air 03/17/17 00:00 97.3 81 18 102/71 97 Room Air 03/16/17 20:08 97.6 70 17 126/67 98 Room Air 03/16/17 15:35 98.4 77 20 121/79 96 Nasal Cannula 3.0 03/16/17 14:32 98.4 67 19 119/75 99 Nasal Cannula 3.0 03/16/17 14:20 98.8 66 14 127/76 100 Nasal Cannula 3.0 03/16/17 14:17 98.2 03/16/17 14:10 68 16 126/82 100 Nasal Cannula 3.0 03/16/17 13:55 67 15 130/80 100 Nasal Cannula 3.0 03/16/17 13:47 69 18 138/80 100 Nasal Cannula 3.0 03/16/17 13:40 70 16 124/84 100 Nasal Cannula 3.0 03/16/17 13:30 72 16 134/85 100 Simple Mask 6.0 03/16/17 13:26 74 14 134/87 100 Simple Mask 6.0 03/16/17 13:21 98.1 80 13 129/80 100 Simple Mask 6.0 03/16/17 13:20 74 16 100 I&O Intake and Output 03/17/17 03/18/17 19:00 07:00 Intake Total 240 ml Balance 240 ml Intake Oral 240 ml Extremities: other - wound open no drainage Laboratory Tests Test 03/17/17 07:35 White Blood Count 8.0 K/UL (4.8-10.8) Red Blood Count 3.35 M/UL (4.70-6.10) L Hemoglobin 9.9 G/DL (14.2-18.0) L Hematocrit 31.8 % (42.0-52.0) L Mean Corpuscular Volume 95 FL (80-99) Mean Corpuscular Hemoglobin 29.5 PG (27.0-31.0) Mean Corpuscular Hemoglobin Concent 31.0 G/DL (32.0-36.0) L Red Cell Distribution Width 16.7 % (11.6-14.8) H Platelet Count 129 K/UL (150-450) L Mean Platelet Volume 6.9 FL (6.5-10.1) Neutrophils (%) (Auto) 80.9 % (45.0-75.0) H Lymphocytes (%) (Auto) 9.6 % (20.0-45.0) L Monocytes (%) (Auto) 6.8 % (1.0-10.0) Eosinophils (%) (Auto) 1.5 % (0.0-3.0) Basophils (%) (Auto) 1.3 % (0.0-2.0) Sodium Level 132 MMOL/L (136-145) L Potassium Level 5.1 MMOL/L (3.5-5.1) Chloride Level 105 MMOL/L (98-107) Carbon Dioxide Level 19 MMOL/L (21-32) L Anion Gap 8 mmol/L (5-15) Blood Urea Nitrogen 26 mg/dL (7-18) H Creatinine 1.8 MG/DL (0.55-1.30) H Estimat Glomerular Filtration Rate mL/min (>60) Glucose Level 130 MG/DL (74-106) H Calcium Level 8.3 MG/DL (8.5-10.1) L Assessment Post-op Diagnosis Abscess right hip X 2 Plan Additional Comments continue as before TINY WATSON Mar 17, 2017 13:11
--- NOTE | 2017-03-17 13:14 | 48 Hour Post Anesthesia Eval ---
Post Anesthesia Evaluation Procedure: I and D R Hip Abcess Date of Evaluation: Mar 17, 2017 Time of Evaluation: 13:13 Blood Pressure Systolic: 126 0: 74 Pulse Rate: 78 Respiratory Rate: 20 Temperature (Fahrenheit): 97.6 O2 Sat by Pulse Oximetry: 98 Airway: patent Nausea: No Vomiting: No Pain Intensity: 3 Hydration Status: adequate Cardiopulmonary Status: stable Mental Status/LOC: patient returned to baseline Follow-up Care/Observations: n/a Post-Anesthesia Complications: none Follow-up care needed: N/A GABBY LOPES M.D. Mar 17, 2017 13:14
[2017-03-17 15:43] VITALS: BP 147/90
[2017-03-17 20:39] VITALS: BP 117/69
[2017-03-17] MEDS: Vancomycin 500 MG in NS 110 ML IVPB SCH (20:55)
[2017-03-17] MEDS: Iron Sucrose 100 MG in NS 55 ML IV SCH (22:22)
[2017-03-18 00:16] VITALS: BP 113/61
[2017-03-18] MEDS: Zosyn 3.375gm/50ml Premix 50 ML IVPB SCH ×3 (00:47→17:10)
[2017-03-18 04:00] VITALS: BP 114/74
[2017-03-18] MEDS: Norco 5mg/325mg tab ORAL PRN ×3 (05:12→20:50)
[2017-03-18 07:44] LABS: BASOPHILS % (AUTO) 1.6 % (0.0-2.0); LYMPHOCYTES % (AUTO) 18.9 % (20.0-45.0); MEAN CORPUSCULAR HEMOGLOBIN 31.8 PG (27.0-31.0); MEAN CORPUSCULAR HGB CONC 34.5 G/DL (32.0-36.0); MEAN CORPUSCULAR VOLUME 92 FL (80-99); MEAN PLATELET VOLUME 8.1 FL (6.5-10.1); MONOCYTES % (AUTO) 9.1 % (1.0-10.0); NEUTROPHILS % (AUTO) 66.5 % (45.0-75.0); PLATELET COUNT 119 K/UL (150-450); RED BLOOD COUNT 2.92 M/UL (4.70-6.10); RED CELL DISTRIBUTION WIDTH 16.5 % (11.6-14.8); WHITE BLOOD COUNT 4.8 K/UL (4.8-10.8)
[2017-03-18 07:49] LABS: ANION GAP 8 mmol/L (5-15); CALCIUM 8.3 MG/DL (8.5-10.1); CARBON DIOXIDE 21 MMOL/L (21-32); CHLORIDE 107 MMOL/L (98-107); CREATININE 1.8 MG/DL (0.55-1.30); POTASSIUM 4.9 MMOL/L (3.5-5.1); SODIUM 135 MMOL/L (136-145)
[2017-03-18 08:15] VITALS: BP 122/79
[2017-03-18] MEDS: Docusate 100mg cap ORAL SCH ×4 (08:22→17:45)
[2017-03-18] MEDS: Ascorbic Acid 500mg tab ORAL SCH (08:22)
[2017-03-18] MEDS ORDERED: Tubing IV Secondary IV ONE ×2 (09:42→09:47)
[2017-03-18] MEDS ORDERED: NS 275ml ONE (09:42)
--- NOTE | 2017-03-18 10:22 | General Progress Note ---
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 2) S/P R hip abcess drainage 3) SHELL is improving 4) Doubt HRS Plan: Continue current measures Subjective Allergies: Coded Allergies: No Known Allergies (Unverified , 03/14/17) Subjective No c/p or sob, some pain on the site of surgery Objective Last 24 Hour Vital Signs Date Time Temp Pulse Resp B/P (MAP) Pulse Ox O2 Delivery O2 Flow Rate FiO2 03/18/17 08:15 98.8 83 21 122/79 97 Room Air 03/18/17 06:11 98.3 03/18/17 04:00 98.3 66 17 114/74 98 Room Air 03/18/17 00:16 98.4 74 18 113/61 96 Room Air 03/17/17 20:39 97.4 77 19 117/69 98 Room Air 03/17/17 15:43 98.0 88 20 147/90 99 Room Air 03/17/17 13:14 78 20 98 03/17/17 12:00 97.7 20 126/75 98 Room Air Intake and Output 03/18/17 03/19/17 19:00 07:00 Intake Total 480 ml Balance 480 ml Intake Oral 480 ml Laboratory Tests 03/18/17 06:01: White Blood Count 4.8, Red Blood Count 2.92L, Hemoglobin 9.3L, Hematocrit 26.9L , Mean Corpuscular Volume 92, Mean Corpuscular Hemoglobin 31.8H, Mean Corpuscular Hemoglobin Concent 34.5, Red Cell Distribution Width 16.5H, Platelet Count 119L, Mean Platelet Volume 8.1, Neutrophils (%) (Auto) 66.5, Lymphocytes (%) (Auto) 18.9L, Monocytes (%) (Auto) 9.1, Eosinophils (%) (Auto) 4.0H, Basophils (%) (Auto) 1.6, Sodium Level 135L, Potassium Level 4.9, Chloride Level 107, Carbon Dioxide Level 21, Anion Gap 8, Blood Urea Nitrogen 27H, Creatinine 1.8H, Estimat Glomerular Filtration Rate , Glucose Level 87, Calcium Level 8.3L Height (Feet): 5 Height (Inches): 10.00 Weight (Pounds): 132 General Appearance: WD/WN, no apparent distress, alert EENT: normal ENT inspection Neck: non-tender, normal alignment, normal inspection Cardiovascular: normal rate, regular rhythm Respiratory/Chest: lungs clear, normal breath sounds Abdomen: normal bowel sounds, non tender, distended, other - ascitis Edema: moderate edema 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
[2017-03-18 12:15] VITALS: BP 125/76
[2017-03-18 16:00] VITALS: BP 117/74
[2017-03-18 19:57] VITALS: BP 121/75
[2017-03-18] MEDS: Vancomycin 500 MG in NS 110 ML IVPB SCH (20:50)
[2017-03-18] MEDS: Iron Sucrose 100 MG in NS 55 ML IV SCH (22:18)
[2017-03-19] VITALS (7 sets, daily range): BP systolic 106–141; BP diastolic 54–81
[2017-03-19] MEDS: Zosyn 3.375gm/50ml Premix 50 ML IVPB SCH ×3 (00:47→17:45)
[2017-03-19] MEDS: Norco 5mg/325mg tab ORAL PRN ×4 (01:31→22:58)
[2017-03-19] MEDS: Docusate 100mg cap ORAL SCH ×3 (09:00→17:45)
[2017-03-19] MEDS: Ascorbic Acid 500mg tab ORAL SCH ×2 (09:00→09:02)
--- NOTE | 2017-03-19 10:15 | General Progress Note ---
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 2) S/P R hip abcess drainage 3) SHELL is improving 4) Doubt HRS Plan: Continue current measures Continue ATB Mobilize Subjective Allergies: Coded Allergies: No Known Allergies (Unverified , 03/14/17) Subjective No c/p or sob, some pain on the site of surgery Objective Last 24 Hour Vital Signs Date Time Temp Pulse Resp B/P (MAP) Pulse Ox O2 Delivery O2 Flow Rate FiO2 03/19/17 04:00 96.8 69 18 106/54 99 Room Air 03/19/17 02:30 98.2 03/19/17 00:00 98.2 80 20 124/63 95 Room Air 03/18/17 19:57 98.2 78 19 121/75 99 Room Air 03/18/17 16:00 97.7 83 18 117/74 98 Room Air 03/18/17 12:15 98.7 85 21 125/76 95 Room Air Laboratory Tests 03/18/17 19:00: Vancomycin Level Trough 10.7 Height (Feet): 5 Height (Inches): 10.00 Weight (Pounds): 132 General Appearance: WD/WN, no apparent distress EENT: PERRL/EOMI Neck: normal alignment Cardiovascular: regular rhythm, no JVD Respiratory/Chest: chest wall non-tender, lungs clear Abdomen: normal bowel sounds, non tender, other - ascitis Edema: trace edema Neurologic: retort cooler II-XII grossly normal NIURKA ANAND Mar 19, 2017 10:15
[2017-03-19] MEDS: Vancomycin 500 MG in NS 110 ML IVPB SCH (20:55)
[2017-03-19] MEDS: Dyna-Hex 2% Top Sol 2oz TOPIC SCH (20:55)
[2017-03-19] MEDS: Iron Sucrose 100 MG in NS 55 ML IV SCH (22:02)
--- NOTE | 2017-03-19 23:16 | Consultation ---
History of Present Illness General Chief Complaint: Abnormal Labs Present Illness HPI 76-year-old male, who presented to emergency room complaining of the pain and swelling at the right hip for few days. the pt is here for medical stabilization. the pt is confused however has episodes that he remembers/ he is irritable angry and abusive. asking staff to come to his room constantly. during the eval he was uncooperative Allergies: Coded Allergies: No Known Allergies (Unverified , 03/14/17) Medication History Scheduled Ascorbic Acid* (Vitamin C*), 500 MG ORAL DAILY, (Reported) Cephalexin* (Keflex*), 500 MG ORAL THREE TIMES A DAY, (Reported) Docusate Sodium* (Docusate Sodium*), 100 MG ORAL TWICE A DAY, (Reported) Escitalopram Oxalate* (Lexapro*), 5 MG ORAL DAILY, (Reported) Ferrous Sulfate (Ferrousul), 325 MG PO TWICE A DAY, (Reported) Metformin Hcl* (Metformin Hcl*), 1,000 MG ORAL BID, (Reported) Pantoprazole* (Pantoprazole*), 40 MG ORAL DAILY, (Reported) Scheduled PRN Acetaminophen (Tylenol), 650 MG ORAL Q6H PRN for Prn Pain/Headache/Temp > 101, ( Reported) Hydrocodone Bit/Acetaminophen 5-325* ([place] 5-325 Tablet*), 1 TAB ORAL Q6HR PRN for For Pain, (Reported) Ondansetron* (Zofran*), 4 MG ORAL Q6H PRN for Nausea & Vomiting, (Reported) Zolpidem Tartrate* (Zolpidem Tartrate*), 5 MG ORAL BEDTIME PRN for Insomnia, ( Reported) Miscellaneous Medications Lipase/Protease/Amylase (Creon Dr 12,000 Units Capsule), 1 EACH PO, (Reported) Nutritional Supplement (Nutren 2.0), Unknown Dose PO, (Reported) Patient History History Provided By: Patient, Medical Record, PMD Healthcare decision maker Resuscitation status Full Code Advanced Directive on File Yes Past Medical/Surgical History Past Medical/Surgical History: (1) Hyperkalemia (2) Renal failure (3) Sepsis (4) COPD (chronic obstructive pulmonary disease) (5) Abscess (6) Ascites (7) Iron deficiency anemia (8) Cirrhosis with alcoholism Review of Systems Psychiatric: Reports: prior hx, anxiety, depressed feelings Physical Exam General Appearance: no apparent distress, alert, confused, thin Neurologic: alert, responsive, disoriented, unresponsiveness, depressed affect Last 24 Hour Vital Signs Date Time Temp Pulse Resp B/P (MAP) Pulse Ox O2 Delivery O2 Flow Rate FiO2 03/19/17 20:00 98.0 76 18 131/70 98 Room Air 03/19/17 16:38 82 132/81 03/19/17 16:00 98.0 73 18 129/73 97 Room Air 03/19/17 12:00 98.1 82 20 141/73 99 Room Air 03/19/17 08:00 96.2 83 18 128/76 100 Room Air 03/19/17 04:00 96.8 69 18 106/54 99 Room Air 03/19/17 02:30 98.2 03/19/17 00:00 98.2 80 20 124/63 95 Room Air Intake and Output 03/19/17 03/20/17 19:00 07:00 # Voids 4 # Bowel Movements 4 Laboratory Tests Test 03/19/17 13:30 Stool Occult Blood Pending Height (Feet): 5 Height (Inches): 10.00 Weight (Pounds): 132 Medications Current Medications Medications (Trade) Dose Ordered Sig/Ehsan Route PRN Reason Start Time Stop Time Status Last Admin Dose Admin Acetaminophen (Tylenol) 650 mg Q4H PRN ORAL Mild Pain (Pain Scale 1-3) 03/14/17 20:00 04/13/17 19:59 Acetaminophen (Tylenol) 650 mg Q4H PRN ORAL fever 03/14/17 20:00 04/13/17 19:59 Acetaminophen/ Hydrocodone Bitart ([place] 5/325) 1 tab Q4H PRN ORAL For Pain Scale 4-10 03/14/17 20:00 03/21/17 19:59 03/19/17 22:58 Ascorbic Acid (Vitamin C) 500 mg DAILY ORAL 03/15/17 09:00 04/14/17 08:59 03/18/17 08:22 Chlorhexidine Gluconate (Lolita-Hex 2%) 1 applic DAILY@2000 TOPIC 03/19/17 20:00 04/18/17 19:59 03/19/17 20:55 Dextrose (Dextrose 50%) STAT PRN IV Hypoglycemia 03/14/17 20:00 04/13/17 19:59 Docusate Sodium (Colace) 100 mg TWICE A DAY ORAL 03/15/17 09:00 04/14/17 08:59 03/16/17 18:34 Escitalopram Oxalate (Lexapro) 15 mg DAILY ORAL 03/20/17 09:00 04/19/17 08:59 Hydromorphone HCl (Dilaudid) 0.5 mg Q3H PRN IVP pain score 4-6 03/17/17 08:15 03/24/17 08:14 Iron Sucrose 100 mg/Sodium Chloride 60 ml @ 240 mls/hr BEDTIME IV 03/16/17 21:00 03/20/17 21:14 03/19/17 22:02 Ondansetron HCl (Zofran) 4 mg Q6H PRN ORAL Nausea & Vomiting 03/14/17 20:00 04/13/17 19:59 Pantoprazole (Protonix) 40 mg DAILY ORAL 03/15/17 09:00 04/14/17 08:59 03/18/17 08:22 Piperacillin/ Tazobactam/ Dextrose 50 ml @ 12.5 mls/hr Q8H IVPB 03/17/17 09:00 03/24/17 08:59 03/19/17 17:45 Quetiapine Fumarate (SEROquel) 50 mg BEDTIME ORAL 03/19/17 21:00 04/18/17 20:59 03/19/17 20:56 Tramadol HCl (Ultram) 50 mg Q6H PRN ORAL For MILD PAIN 1-3 03/16/17 13:15 03/23/17 13:14 Vancomycin HCl (Vanco rx to dose) 1 ea DAILY PRN MISC Per rx protocol 03/15/17 10:00 04/14/17 09:59 Vancomycin HCl 500 mg/Sodium Chloride 110 ml @ 110 mls/hr Q24H IVPB 03/16/17 20:00 03/21/17 19:59 03/19/17 20:55 Zolpidem Tartrate (Ambien) 5 mg BEDTIME PRN ORAL Insomnia 03/14/17 20:00 03/21/17 19:59 03/17/17 20:54 Assessment/Plan Status: stable, progressing Assessment/Plan mdd cognitive impairment increase lexapto 15mg qam seroquel 50mg Farhadi,Pantea M.D. Mar 19, 2017 23:15
[2017-03-20] VITALS: BP 101/57
[2017-03-20] MEDS: Zosyn 3.375gm/50ml Premix 50 ML IVPB SCH ×3 (00:47→18:45)
[2017-03-20 04:00] VITALS: BP 112/62
[2017-03-20] MEDS: Norco 5mg/325mg tab ORAL PRN (06:37)
[2017-03-20 08:00] VITALS: BP 139/86
[2017-03-20] MEDS: Ascorbic Acid 500mg tab ORAL SCH (08:29)
[2017-03-20] MEDS: Docusate 100mg cap ORAL SCH ×2 (09:00→18:00)
[2017-03-20 12:00] VITALS: BP 142/82
[2017-03-20 16:00] VITALS: BP 131/82
--- NOTE | 2017-03-20 18:16 | General Progress Note ---
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 2) S/P R hip abcess drainage 3) SHELL is improving 4) Doubt HRS Plan: Continue current measures Continue ATB Mobilize Can be discharged tomorrow to SNF Subjective Allergies: Coded Allergies: No Known Allergies (Unverified , 03/14/17) Subjective No c/p or sob, doing better, walks some Objective Last 24 Hour Vital Signs Date Time Temp Pulse Resp B/P (MAP) Pulse Ox O2 Delivery O2 Flow Rate FiO2 03/20/17 16:00 97.8 90 20 131/82 98 Room Air 03/20/17 12:00 97.3 79 20 142/82 100 Room Air 03/20/17 08:00 97.5 77 20 139/86 100 Room Air 03/20/17 04:00 97.5 65 20 112/62 98 Room Air 03/20/17 00:00 98.1 77 20 101/57 97 Room Air 03/19/17 23:57 98.0 03/19/17 20:00 98.0 76 18 131/70 98 Room Air Intake and Output 03/20/17 03/21/17 19:00 07:00 # Bowel Movements 2 Height (Feet): 5 Height (Inches): 10.00 Weight (Pounds): 132 General Appearance: WD/WN, no apparent distress EENT: PERRL/EOMI Neck: non-tender, normal alignment Cardiovascular: normal rate, regular rhythm, no JVD Respiratory/Chest: chest wall non-tender, lungs clear Abdomen: normal bowel sounds, non tender Edema: mild edema 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
[2017-03-20 20:00] VITALS: BP 147/86
[2017-03-20] MEDS ORDERED: VANCOMYCIN IVPB SCH (20:00)
[2017-03-20] MEDS ORDERED: NS IVPB SCH (20:00)
[2017-03-20] MEDS: Iron Sucrose 100 MG in NS 55 ML IV SCH (21:24)
[2017-03-20] MEDS: Dyna-Hex 2% Top Sol 2oz TOPIC SCH (21:24)
--- NOTE | 2017-03-20 22:18 | General Progress Note ---
Assessment/Plan Status: stable, progressing Subjective Date patient seen: Mar 20, 2017 Neurologic/Psychiatric: Reports: anxiety, depressed, emotional problems Allergies: Coded Allergies: No Known Allergies (Unverified , 03/14/17) Objective Last 24 Hour Vital Signs Date Time Temp Pulse Resp B/P (MAP) Pulse Ox O2 Delivery O2 Flow Rate FiO2 03/20/17 20:00 97.7 101 20 147/86 99 Room Air 03/20/17 16:00 97.8 90 20 131/82 98 Room Air 03/20/17 12:00 97.3 79 20 142/82 100 Room Air 03/20/17 08:00 97.5 77 20 139/86 100 Room Air 03/20/17 04:00 97.5 65 20 112/62 98 Room Air 03/20/17 00:00 98.1 77 20 101/57 97 Room Air 03/19/17 23:57 98.0 Intake and Output 03/20/17 03/21/17 19:00 07:00 # Bowel Movements 2 Height (Feet): 5 Height (Inches): 10.00 Weight (Pounds): 132 General Appearance: no apparent distress, alert Neurologic: alert, responsive, depressed affect Valentina Ugarte M.D. Mar 20, 2017 22:18
--- NOTE | 2017-03-20 22:19 | Geriatric Progress Note ---
Subjective Interval Events 03/18/17 Geriatric Geriatric Last 24 Hour Vital Signs Date Time Temp Pulse Resp B/P (MAP) Pulse Ox O2 Delivery O2 Flow Rate FiO2 03/20/17 20:00 97.7 101 20 147/86 99 Room Air 03/20/17 16:00 97.8 90 20 131/82 98 Room Air 03/20/17 12:00 97.3 79 20 142/82 100 Room Air 03/20/17 08:00 97.5 77 20 139/86 100 Room Air 03/20/17 04:00 97.5 65 20 112/62 98 Room Air 03/20/17 00:00 98.1 77 20 101/57 97 Room Air 03/19/17 23:57 98.0 Intake and Output 03/20/17 03/21/17 19:00 07:00 # Bowel Movements 2 Current Medications Medications (Trade) Dose Ordered Sig/Ehsan Route PRN Reason Start Time Stop Time Status Last Admin Dose Admin Acetaminophen (Tylenol) 650 mg Q4H PRN ORAL Mild Pain (Pain Scale 1-3) 03/14/17 20:00 04/13/17 19:59 Acetaminophen (Tylenol) 650 mg Q4H PRN ORAL fever 03/14/17 20:00 04/13/17 19:59 Acetaminophen/ Hydrocodone Bitart ([place] 5/325) 1 tab Q4H PRN ORAL For Pain Scale 4-10 03/14/17 20:00 03/21/17 19:59 03/20/17 06:37 Ascorbic Acid (Vitamin C) 500 mg DAILY ORAL 03/15/17 09:00 04/14/17 08:59 03/20/17 08:29 Chlorhexidine Gluconate (Lolita-Hex 2%) 1 applic DAILY@2000 TOPIC 03/19/17 20:00 04/18/17 19:59 03/20/17 21:24 Dextrose (Dextrose 50%) STAT PRN IV Hypoglycemia 03/14/17 20:00 04/13/17 19:59 Docusate Sodium (Colace) 100 mg TWICE A DAY ORAL 03/15/17 09:00 04/14/17 08:59 03/16/17 18:34 Escitalopram Oxalate (Lexapro) 15 mg DAILY ORAL 03/20/17 09:00 04/19/17 08:59 03/20/17 08:31 Hydromorphone HCl (Dilaudid) 0.5 mg Q3H PRN IVP pain score 4-6 03/17/17 08:15 03/24/17 08:14 Ondansetron HCl (Zofran) 4 mg Q6H PRN ORAL Nausea & Vomiting 03/14/17 20:00 04/13/17 19:59 Pantoprazole (Protonix) 40 mg DAILY ORAL 03/15/17 09:00 04/14/17 08:59 03/20/17 08:29 Piperacillin Sod/ Tazobactam Sod 3.375 gm/Dextrose 55 ml @ 13.75 mls/ hr Q8HR@0100,0900,1700 IVPB 03/21/17 01:00 03/28/17 00:59 Piperacillin/ Tazobactam/ Dextrose 50 ml @ 12.5 mls/hr Q8H IVPB 03/17/17 09:00 03/20/17 23:59 03/20/17 18:45 Quetiapine Fumarate (SEROquel) 50 mg BEDTIME ORAL 03/19/17 21:00 04/18/17 20:59 03/20/17 21:23 Tramadol HCl (Ultram) 50 mg Q6H PRN ORAL For MILD PAIN 1-3 03/16/17 13:15 03/23/17 13:14 Vancomycin HCl (Vanco rx to dose) 1 ea DAILY PRN MISC Per rx protocol 03/15/17 10:00 04/14/17 09:59 Vancomycin HCl 500 mg/Sodium Chloride 275 ml @ 275 mls/hr DAILY@2000 IVPB 03/20/17 20:00 03/25/17 19:59 03/20/17 21:23 Zolpidem Tartrate (Ambien) 5 mg BEDTIME PRN ORAL Insomnia 03/14/17 20:00 03/21/17 19:59 03/17/17 20:54 Height (Feet): 5 Height (Inches): 10.00 Weight (Pounds): 132 Valentina Ugarte M.D. Mar 20, 2017 22:19
[2017-03-21] VITALS: BP 120/65
[2017-03-21] MEDS: Piperacillin/Tazobactam 3.375 GM in D5W 55 ML IVPB SCH ×2 (01:14→09:00)
[2017-03-21 04:04] VITALS: BP 115/82
[2017-03-21] MEDS: Norco 5mg/325mg tab ORAL PRN ×2 (04:43→09:25)
[2017-03-21 08:27] VITALS: BP 135/85
[2017-03-21] MEDS: Ascorbic Acid 500mg tab ORAL SCH (09:25)
[2017-03-21] MEDS: Docusate 100mg cap ORAL SCH (09:26)
[2017-03-21] MEDS ORDERED: NS 275ml ONE (10:33)
[2017-03-21] MEDS ORDERED: Tubing IV Secondary IV ONE ×2 (10:33→15:29)
[2017-03-21 11:57] VITALS: BP 141/83
[2017-03-21] MEDS ORDERED: ALDACTONE50 MG ORAL (13:25)
[2017-03-21 16:27] VITALS: BP 140/60
--- NOTE | 2017-03-21 18:44 | General Progress Note ---
Assessment/Plan Status: doing well, stable, progressing Subjective Date patient seen: Mar 21, 2017 Neurologic/Psychiatric: Reports: anxiety, emotional problems Allergies: Coded Allergies: No Known Allergies (Unverified , 03/14/17) Objective Last 24 Hour Vital Signs Date Time Temp Pulse Resp B/P (MAP) Pulse Ox O2 Delivery O2 Flow Rate FiO2 03/21/17 16:27 97.6 75 18 140/60 Room Air 03/21/17 11:57 97.0 78 18 141/83 100 Room Air 03/21/17 08:27 97.4 85 20 135/85 99 Room Air 03/21/17 04:04 97.0 78 21 115/82 97 Room Air 03/21/17 00:00 97.2 81 20 120/65 98 Room Air 03/20/17 20:00 97.7 101 20 147/86 99 Room Air Intake and Output 03/21/17 03/22/17 19:00 07:00 Intake Total 720 ml Balance 720 ml Intake Oral 720 ml # Voids 2 # Bowel Movements 2 Height (Feet): 5 Height (Inches): 10.00 Weight (Pounds): 132 General Appearance: no apparent distress, alert Neurologic: alert, responsive, depressed affect Valentina Ugarte M.D. Mar 21, 2017 18:44
--- NOTE | 2017-03-22 03:15 | Discharge Summary ---
DATE OF ADMISSION: 03/14/2017 DATE OF DISCHARGE: 03/21/2017 PERTINENT HISTORY: The patient is a 76-year-old man with cirrhosis and COPD, admitted with infected hematoma, abscess, right hip from the [facility]. He has had difficulty walking, peripheral neuropathy, and chronic ascites. He developed hematoma and abscess in the E[facility]. PERTINENT PHYSICAL FINDINGS: See the dictated History and Physical for full details. GENERAL: The patient is alert. HEAD, EYES, EARS, NOSE, AND THROAT: Oral mucosa is slightly dry. NECK: No adenopathy. LUNGS: Clear. Distant breath sounds. HEART: Regular rhythm. ABDOMEN: Moderate ascites. Liver is about 2 cm below the right costal margin. EXTREMITIES: Trace edema and moderate muscle wasting. SKIN: Shows a hematoma with erythema on the right lateral hip. COURSE IN THE HOSPITAL: The patient was started on empiric antibiotics. He underwent surgery by Dr. Lyon for incision and drainage of the abscess. The patient tolerated the procedure well. The patient had anemia requiring transfusion likely a combination of iron deficiency and anemia of chronic disease. He also had acute kidney injury with the creatinine of 2.0 and BUN 30 on admission that later came down to 27 and 1.8, part of this is chronic kidney disease secondary to possible nephrosclerosis and chronic liver disease. He has chronic ascites. The patient's condition improved with wound care debridement and antibiotics. His wound cultures grew E. coli and Klebsiella and he was colonized with MRSA. On the day of discharge, the patient was alert, lungs clear, heart regular rhythm, abdomen showed moderate ascites, extremities no edema, skin showed a large stage IV decubitus, clean in the right hip with clean granulation, and he was discharged to the F in stable condition. FINAL DIAGNOSES: 1. Abscess and hematoma, right hip, infected. 2. Escherichia coli and Klebsiella infection. 3. Methicillin-resistant Staphylococcus aureus colonization. 4. Chronic obstructive pulmonary disease. 5. Cirrhosis with ascites. 6. Chronic kidney disease, stage 4. 7. Acute kidney injury. DISCHARGE DISPOSITION: DIET: On a low-salt diet. MEDICATIONS: Per the discharge medication list and wound care at the [facility]. Chano Cramer M.D. DR: Robert JOB#: [id number] CC:
== END 2017-03-21 15:30 | DRG 579 ==
LOC: EDBD 19:15 → EMR 19:33 → 3E 19:36 → EDBEDREQ 21:04 → 3E 03-17 01:40 → 4E 03-18 06:54
PROC: 30233N1 Transfusion of Nonautologous Red Blood Cells into Peripheral Vein, Percutaneous Approach (ICD-10-PCS; principal; 2017-03-15)
PROC: 0J9L0ZZ Drainage of Right Upper Leg Subcutaneous Tissue and Fascia, Open Approach (ICD-10-PCS; 2017-03-16)
DX: L02.415 Cutaneous abscess of right lower limb (principal); L89.94 Pressure ulcer of unspecified site, stage 4; N18.4 Chronic kidney disease, stage 4 (severe); N17.9 Acute kidney failure, unspecified; K70.31 Alcoholic cirrhosis of liver with ascites; E87.5 Hyperkalemia; G62.9 Polyneuropathy, unspecified; F10.21 Alcohol dependence, in remission; I12.9 Hypertensive chronic kidney disease with stage 1 through stage 4 chronic kidney disease, or unspecified chronic kidney disease; D50.9 Iron deficiency anemia, unspecified; J44.9 Chronic obstructive pulmonary disease, unspecified; B96.20 Unspecified Escherichia coli [E. coli] as the cause of diseases classified elsewhere; B96.1 Klebsiella pneumoniae [K. pneumoniae] as the cause of diseases classified elsewhere; M79.81 Nontraumatic hematoma of soft tissue; Z22.322 Carrier or suspected carrier of Methicillin resistant Staphylococcus aureus; F17.200 Nicotine dependence, unspecified, uncomplicated; F32.9 Major depressive disorder, single episode, unspecified; D63.8 Anemia in other chronic diseases classified elsewhere
CPT/HCPCS: 36415; 71010; 74176; 80048; 80053; 80202; 81001; 81003; 82140; 82270; 82550; 82553; 82570; 83605; 84300; 84484; 85007; 85025; 85610; 85730; 86850; 86900; 86901; 86920; 87040; 87070; 87081; 87181; 87205; 93005; 94003; 94150; 99285; J2250; J3490

== ENCOUNTER 2017-04-12 12:08 | Outpatient (CLI) | payer MEDICARE, MEDICAID ==
[~2017-04-12 12:08] MED LIST: ALDACTONE50 MG ORAL; CEPHALEXIN500 MG ORAL; CREON DR 12,001 EACH PO; DOCUSATE SODIU100 MG ORAL; ESCITALOPRAM OX10 MG ORAL; FERROUSUL325 M1 PO; LEXAPRO10 MG ORAL; METFORMIN HCL1000 M1 ORAL; NORCO 5-325 TA1 EAC1 ORAL; NUTREN 2.0250 ML PO; PANTOPRAZOLE SO40 MG ORAL; TYLENOL325 MG ORAL; VITAMIN C500 M1 ORAL; ZOFRAN4 M3 ORAL; ZOLPIDEM TARTRAT5 MG ORAL
[2017-04-12 12:28] LABS: BASOPHILS % (AUTO) 0.9 % (0.0-2.0); EOSINOPHILS % (AUTO) 1.9 % (0.0-3.0); MEAN CORPUSCULAR HEMOGLOBIN 29.6 PG (27.0-31.0); MEAN CORPUSCULAR HGB CONC 30.6 G/DL (32.0-36.0); MEAN CORPUSCULAR VOLUME 97 FL (80-99); MEAN PLATELET VOLUME 7.1 FL (6.5-10.1); MONOCYTES % (AUTO) 11.5 % (1.0-10.0); NEUTROPHILS % (AUTO) 71.7 % (45.0-75.0); PLATELET COUNT 107 K/UL (150-450); RED BLOOD COUNT 3.14 M/UL (4.70-6.10); RED CELL DISTRIBUTION WIDTH 17.1 % (11.6-14.8); WHITE BLOOD COUNT 7.3 K/UL (4.8-10.8)
[2017-04-12 12:40] LABS: INR 1.2 (0.9-1.1); PROTHROMBIN TIME 12.7 SEC (9.30-11.50)
[2017-04-12 12:42] LABS: ANION GAP 8 mmol/L (5-15); CALCIUM 8.2 MG/DL (8.5-10.1); CARBON DIOXIDE 19 MMOL/L (21-32); CHLORIDE 109 MMOL/L (98-107); CREATININE 1.9 MG/DL (0.55-1.30); POTASSIUM 4.7 MMOL/L (3.5-5.1); SODIUM 136 MMOL/L (136-145)
--- NOTE | 2017-04-12 15:59 | Diagnostic Imaging Report ---
Indications: Ascites, abdominal distention Technique: Ultrasound used to localize optimal puncture site. Sterile prepping and draping left lower quadrant. Local anesthesia with 1% lidocaine. Under real-time ultrasound guidance, puncture peritoneal space using paracentesis needle. Stylet removed. Catheter placed to vacuum bottle suction. Total 9.8 liters of cloudy fluid aspirated. Patient tolerated procedure well, without immediate complication. Findings: Followup sonography demonstrates complete resolution of peritoneal fluid. Impression: Successful ultrasound-guided paracentesis, yielding 9.8 liters of cloudy yellow fluid A specimen was sent to the lab for microbial analysis
== END 2017-04-12 14:08 | disposition home or self-care (01) ==
LOC: ULS 12:08
DX: R18.8 Other ascites (principal)
CPT/HCPCS: 36415; 76942; 80048; 85025; 85610; 85730; 87070; 87205

== ENCOUNTER 2017-04-15 09:56 | Inpatient (IN) | payer MEDICARE, MEDICAID ==
[~2017-04-15] VITALS: Ht 177.8 cm; Wt 71.7 kg
[2017-04-15] MEDS ORDERED: LORazepam Inj 2mg/ml 1ml IM ONE (10:15)
[2017-04-15] MEDS ORDERED: DiphenhydrAMINE 50mg/ml Inj IM ONE (10:15)
--- NOTE | 2017-04-15 10:19 | Emergency Room Report ---
History of Present Illness General Chief Complaint: Altered Level of Consciousness Source: EMS Present Illness HPI The patient is sent in for altered no status. He has a history of cirrhosis and hepatic encephalopathy. He repeats saying "stop bothering me" and "leave me alone" but doesn't give any other history. No reported fevers, vomiting, melena, cough, complaints of pain. Patient striking out at staff. He was recently discharged 03/21 with these d/c diagnoses: 1. Abscess and hematoma, right hip, infected. 2. Escherichia coli and Klebsiella infection. 3. Methicillin-resistant Staphylococcus aureus colonization. 4. Chronic obstructive pulmonary disease. 5. Cirrhosis with ascites. 6. Chronic kidney disease, stage 4. 7. Acute kidney injury. Allergies: Coded Allergies: No Known Allergies (Unverified , 03/14/17) Patient History Past Medical History: see triage record Social History: Reports: alcohol use - prior Social History Narrative SNF Reviewed Nursing Documentation: PMH: Agreed, PSxH: Agreed Nursing Documentation-PMH Hx Cardiac Problems: No Hx Cancer: No Hx Gastrointestinal Problems: Yes Hx Neurological Problems: No Physical Exam Vital Signs Date Time Temp Pulse Resp B/P (MAP) Pulse Ox O2 Delivery O2 Flow Rate FiO2 04/15/17 09:50 97.5 70 18 111/82 98 Room Air Sp02 EP Interpretation: reviewed, normal General Appearance: no apparent distress, other - eyes closed and responds to touch, not to questions, Chronically Ill Head: normocephalic Eyes: bilateral eye normal inspection, bilateral eye PERRL ENT: moist mucus membranes Neck: supple Respiratory: lungs clear, normal breath sounds Cardiovascular #1: regular rate, rhythm Cardiovascular #2: 2+ radial (R) Gastrointestinal: normal inspection, normal bowel sounds, non tender, no mass, non-distended Rectal: heme positive stool - brown - trace + Genitourinary: normal inspection, other - hypogonadism Musculoskeletal: back normal, gait/station normal, normal range of motion Neurologic: responsive, motor strength/tone normal, DTRs symmetric, sensory intact, other - asterixis Psychiatric: depressed affect - perseveration and combative Skin: other - recent abscess with some drainage R hip Medical Decision Making Diagnostic Impression: Primary Impression: Hepatic encephalopathy Additional Impressions: Abscess Renal insufficiency UTI (urinary tract infection) Qualified Codes: N30.00 - Acute cystitis without hematuria ER Course Patient presents with ALOC. Ddx: sepsis, hepatic encephalopathy, electrolyte abnormality, UTI, GI bleed amongst others. Complicated patient needing comprehensive evaluation. Unable to do so without restraint/sedation (will opt for both). Evaluation with EKG, labs. Treatment with IV hydration (after sedation). Abscess not appear with cellulitis, though still draining. Non- focal, doubt central lesion. Lungs clear. Trace guaiac + stools, doubt significant GI bleed. EKG - no injury. CXR no infiltrates. Labs with elevated K but hemolyzed specimen (repeat ordered and drawn). Renal insufficiency. TSH high. Pyuria. Antibiotics begun for UTI. Treated with IV hydration, lactulose enema. Still with stupor (on top of sedation). Needs admission telemetry. Dr. Malcolm contacted and requests Dr Jim. Laboratory Tests Test 04/15/17 11:25 04/15/17 12:57 04/15/17 20:28 White Blood Count 4.0 K/UL (4.8-10.8) L Red Blood Count 3.97 M/UL (4.70-6.10) L Hemoglobin 12.4 G/DL (14.2-18.0) L Hematocrit 38.1 % (42.0-52.0) L Mean Corpuscular Volume 96 FL (80-99) Mean Corpuscular Hemoglobin 31.2 PG (27.0-31.0) H Mean Corpuscular Hemoglobin Concent 32.5 G/DL (32.0-36.0) Red Cell Distribution Width 17.1 % (11.6-14.8) H Platelet Count 120 K/UL (150-450) L Mean Platelet Volume 8.0 FL (6.5-10.1) Neutrophils (%) (Auto) 77.3 % (45.0-75.0) H Lymphocytes (%) (Auto) 16.1 % (20.0-45.0) L Monocytes (%) (Auto) 4.9 % (1.0-10.0) Eosinophils (%) (Auto) 0.8 % (0.0-3.0) Basophils (%) (Auto) 0.9 % (0.0-2.0) Urine Color Pale yellow Urine Appearance Clear Urine pH 6 (4.5-8.0) Urine Specific [place] 1.010 (1.005-1.035) Urine Protein 2+ (NEGATIVE) H Urine Glucose (UA) Negative (NEGATIVE) Urine Ketones Negative (NEGATIVE) Urine Occult Blood 5+ (NEGATIVE) H Urine Nitrite Negative (NEGATIVE) Urine Bilirubin Negative (NEGATIVE) Urine Urobilinogen Normal MG/DL (0.0-1.0) Urine Leukocyte Esterase 1+ (NEGATIVE) H Urine RBC 60-80 /HPF (0 - 0) H Urine WBC 5-10 /HPF (0 - 0) H Urine Squamous Epithelial Cells Few /LPF (NONE/OCC) Urine Bacteria Few /HPF (NONE) Sodium Level 134 MMOL/L (136-145) L Potassium Level 6.1 MMOL/L (3.5-5.1) *H Chloride Level 105 MMOL/L (98-107) Carbon Dioxide Level 20 MMOL/L (21-32) L Anion Gap 8 mmol/L (5-15) Blood Urea Nitrogen 41 mg/dL (7-18) H Creatinine 2.0 MG/DL (0.55-1.30) H Estimate Glomerular Filtration Rate mL/min (>60) Glucose Level 108 MG/DL (74-106) H Lactic Acid Level 2.40 mmol/L (0.66-2.22) H Pending Calcium Level 8.8 MG/DL (8.5-10.1) Total Bilirubin 0.6 MG/DL (0.2-1.0) Aspartate Amino Transferase (AST) 69 U/L (15-37) H Alanine Aminotransferase (ALT) 28 U/L (12-78) Alkaline Phosphatase 174 U/L (46-116) H Ammonia 208 umol/L (11-32) H Total Creatine Kinase 152 U/L (26-308) Total Protein 9.0 G/DL (6.4-8.2) H Albumin 2.0 G/DL (3.4-5.0) L Globulin 7.0 g/dL Albumin/Globulin Ratio 0.3 (1.0-2.7) L Thyroid Stimulating Hormone (TSH) 4.436 uiU/mL (0.358-3.740) Salicylates Level < 0.2 ug/mL (2.8-20) L Urine Opiates Screen Positive (NEGATIVE) H Acetaminophen Level < 2 MCG/ML (10-30) L Urine Barbiturates Screen Negative (NEGATIVE) Phencyclidine (PCP) Screen Negative (NEGATIVE) Urine Amphetamines Screen Negative (NEGATIVE) Urine Benzodiazepines Screen Negative (NEGATIVE) Urine Cocaine Screen Negative (NEGATIVE) Urine Marijuana (THC) Screen Negative (NEGATIVE) Serum Alcohol < 3 mg/dL Prothrombin Time 12.7 SEC (9.30-11.50) H Prothrombin Time INR 1.2 (0.9-1.1) H EKG Diagnostic Results Rate: normal Rhythm: NSR ST Segments: no acute changes Rhythm Strip Diag. Results EP Interpretation: yes Rhythm: NSR, no PVC's, no ectopy Last Vital Signs Date Time Temp Pulse Resp B/P (MAP) Pulse Ox O2 Delivery O2 Flow Rate FiO2 04/15/17 20:00 97.5 81 20 144/84 98 Room Air Status: improved Disposition: ADMITTED INPATIENT Condition: Serious Referrals: JAMES MALCOLM (PCP) Austin Ramirez M.D. Apr 15, 2017 10:19
[2017-04-15 10:27] VITALS: BP 111/82
[2017-04-15 11:56] LABS: BASOPHILS % (AUTO) 0.9 % (0.0-2.0); EOSINOPHILS % (AUTO) 0.8 % (0.0-3.0); LYMPHOCYTES % (AUTO) 16.1 % (20.0-45.0); MEAN CORPUSCULAR HEMOGLOBIN 31.2 PG (27.0-31.0); MEAN CORPUSCULAR HGB CONC 32.5 G/DL (32.0-36.0); MEAN CORPUSCULAR VOLUME 96 FL (80-99); MONOCYTES % (AUTO) 4.9 % (1.0-10.0); NEUTROPHILS % (AUTO) 77.3 % (45.0-75.0); PLATELET COUNT 120 K/UL (150-450); RED BLOOD COUNT 3.97 M/UL (4.70-6.10); RED CELL DISTRIBUTION WIDTH 17.1 % (11.6-14.8)
[2017-04-15 12:07] LABS: APPEARANCE,URINE CLEAR; KETONES,URINE NEGATIVE (NEGATIVE); LEUKOCYTE ESTERASE ,URINE 1+ (NEGATIVE); NITRITE,URINE NEGATIVE (NEGATIVE); PH,URINE 6 (4.5-8.0); PROTEIN,URINE 2+ (NEGATIVE); UROBILINOGEN,URINE NORMAL MG/DL (0.0-1.0)
[2017-04-15 12:15] VITALS: BP 141/85
[2017-04-15 12:15] LABS: AMMONIA 208 umol/L (11-32)
[2017-04-15 12:17] LABS: BACTERIA,URINE FEW /HPF; RBC,URINE 60-80 /HPF (0 - 0); SQUAMOUS EPITHELIAL CELL,UR FEW /LPF (NONE/OCC)
[2017-04-15 12:27] LABS: ALANINE AMINOTRANSFERASE 28 U/L (12-78); ALBUMIN/GLOBULIN RATIO 0.3 (1.0-2.7); ANION GAP 8 mmol/L (5-15); ASPARTATE AMINO TRANSFERASE 69 U/L (15-37); CALCIUM 8.8 MG/DL (8.5-10.1); CARBON DIOXIDE 20 MMOL/L (21-32); CHLORIDE 105 MMOL/L (98-107); SODIUM 134 MMOL/L (136-145); THYROID STIMULATING HORMONE 4.436 uiU/mL (0.358-3.740)
[2017-04-15 12:29] LABS: REFLEX LACTIC ACID YES OR NO YES
[2017-04-15 12:30] LABS: ACETAMINOPHEN < 2 MCG/ML (10-30); ALCOHOL < 3 mg/dL
[2017-04-15 12:34] LABS: POTASSIUM 6.1 MMOL/L (3.5-5.1)
[2017-04-15] MEDS ORDERED: Lactulose 200 GM in NS Irrig 1000ml 700 ML RECTAL STA (12:45)
[2017-04-15 12:52] VITALS: BP 127/68
[2017-04-15] MEDS ORDERED: Lactulose 20gm/30ml UDC ONE (12:59)
[2017-04-15] MEDS ORDERED: cefTRIAXone 1 GM in D5W 55 ML IVPB ONE (14:15)
[2017-04-15 16:00] VITALS: BP 146/86
--- NOTE | 2017-04-15 19:01 | History & Physical ---
History and Physical History & Physicial Dictated NIURKA ANAND Apr 15, 2017 19:01
[2017-04-15 20:00] VITALS: BP 144/84
[2017-04-15 20:53] LABS: INR 1.2 (0.9-1.1); PROTHROMBIN TIME 12.7 SEC (9.30-11.50)
[2017-04-15] MEDS ORDERED: Heparin 5000 units/ml inj SUBQ SCH (21:00)
[2017-04-15] MEDS: Heparin 5000 units/ml inj SUBQ SCH (21:00)
[2017-04-15] MEDS: Lactulose 20gm/30ml UDC ORAL SCH (21:00)
[2017-04-15] MEDS: D5NS 1,000 ML IV SCH (22:29)
--- NOTE | 2017-04-16 00:45 | History and Physical Report ---
DATE OF ADMISSION: 04/15/2017 REASON FOR ADMISSION: Altered mental status. HISTORY OF PRESENT ILLNESS: This is a 76-year-old male, patient of Dr. Cramer, who is living in a convalescent home. He has underlying history of cirrhosis of the liver and COPD. He has been brought to the emergency room of the [facility] because of altered mental status. In the emergency room, the workup has included an ammonia level, which was in the range of 208. 20 g of lactulose rectally was given. He was also given some IV fluid. He has serum creatinine in the range of 2.0 mg/dL on admission and he has been admitted to the hospital for further evaluation. He is unable to give me a very fruitful history. He seems to be a little bit more alert than when he came in. Apparently per report of the nurses, the police has found four bowels of illicit drugs in his room. In the emergency room, the urine tox screen is positive for opiates. PAST MEDICAL HISTORY: Significant for cirrhosis of the liver, COPD due to smoking, and has had abscess of the right hip, status post drainage in the previous admission. Also status post cholecystectomy. MEDICATIONS: Aldactone, Colace, Lexapro, [place], vitamin C, Ambien, and Tylenol p.r.n. ALLERGIES: NKDA. SOCIAL HISTORY: He is a resident of a convalescent Home. Apparently, he continues to smoke. He also has been an alcohol abuser. As a result, he got cirrhosis of the liver. REVIEW OF SYSTEMS: Impossible since he is not able to give me very fruitful history. He is very lethargic at this point. PHYSICAL EXAMINATION: GENERAL: This is a cachectic-looking gentleman, does not seem to be in much acute distress, lying down in bed flat. VITAL SIGNS: Blood pressure is 146/86, pulse of 68, respirations 19, and temperature 97.9 degrees. HEENT: Head is atraumatic. Eyes, pupils reactive to light. No evidence of papilledema. Ears, canals are clear. EOMs are intact. Nose, nares are patent without any nasal discharge. Throat without inflammation or exudate. NECK: Supple. Jugular venous distention is low normal. No cervical adenopathy. No thyromegaly. HEART: Regular rhythm. No gallop. LUNGS: Clear to auscultation. ABDOMEN: Soft. Bowel sounds positive. No hepatosplenomegaly. EXTREMITIES: Lower extremities show no cyanosis or clubbing. No pedal edema. NEUROLOGICAL: He has 2+ asterixis. He is very lethargic at this point. LABORATORY AND DIAGNOSTIC DATA: Laboratory data is showing sodium of 134, potassium 6.1, chloride 105, carbon dioxide 20, BUN is 41, and creatinine 2.0. Apparently, the specimen was hemolyzed and ammonia is 208. Alkaline phosphatase 174, AST 69, and ALT is 28. Albumin is 2.0. TSH of 4.4. WBC 4, hemoglobin is 12.4, hematocrit 38.1, and platelets of 120,000. Unfortunately, ProTime was not checked and urinalysis also is showing 60 to 80 RBCs, 5 to 10 WBCs, and 2+ protein. IMPRESSION: 1. Evidence of altered mental status due to hepatic encephalopathy and severe hyperammonemia. 2. Underlying chronic obstructive pulmonary disease. 3. He seems to be mildly fluid depleted and dehydrated at this point. 4. He has underlying chronic kidney disease. PLAN: He is going to be admitted. We will wait to start him on lactulose 30 g p.o. q.6 h. as well as rifaximin 400 mg p.o. q.8 h. IV fluid with D5 normal saline at 75 mL/hour is going to be instituted and we go from there. Nelson Jim M.D. DR: Jaycee JOB#: [id number] CC: SIVAKUMAR
[2017-04-16 04:17] VITALS: BP 142/81
[2017-04-16 08:00] VITALS: BP 137/79
[2017-04-16] MEDS: D5NS 1,000 ML IV SCH (10:00)
[2017-04-16] MEDS: Lactulose 20gm/30ml UDC ORAL SCH ×4 (10:01→20:48)
[2017-04-16] MEDS: Heparin 5000 units/ml inj SUBQ SCH ×2 (10:03→21:00)
--- NOTE | 2017-04-16 10:15 | Diagnostic Imaging Report ---
Indication: Chest pain. Technique: XRAY CHEST 1 V. Comparison: 03/16/2017 Findings: The heart is normal in size. The lungs are clear. No pleural fluid. There is atherosclerotic change of the aorta. The bones are unremarkable. Impression: Atherosclerotic change. Otherwise negative chest.
[2017-04-16 12:00] VITALS: BP 148/81
[2017-04-16 16:00] VITALS: BP 154/95
[2017-04-16] MEDS ORDERED: NS 500ML ONE (16:22)
[2017-04-16] MEDS ORDERED: D5NS 1000ml IV ONE (16:22)
[2017-04-16 16:57] LABS: INR 1.2 (0.9-1.1); PROTHROMBIN TIME 12.6 SEC (9.30-11.50)
[2017-04-16 16:59] LABS: BASOPHILS % (AUTO) 1.2 % (0.0-2.0); EOSINOPHILS % (AUTO) 1.2 % (0.0-3.0); LYMPHOCYTES % (AUTO) 11.8 % (20.0-45.0); MEAN CORPUSCULAR HEMOGLOBIN 31.7 PG (27.0-31.0); MEAN CORPUSCULAR HGB CONC 32.5 G/DL (32.0-36.0); MEAN CORPUSCULAR VOLUME 97 FL (80-99); MEAN PLATELET VOLUME 7.6 FL (6.5-10.1); NEUTROPHILS % (AUTO) 78.8 % (45.0-75.0); PLATELET COUNT 103 K/UL (150-450); RED BLOOD COUNT 3.27 M/UL (4.70-6.10); RED CELL DISTRIBUTION WIDTH 16.9 % (11.6-14.8); WHITE BLOOD COUNT 4.9 K/UL (4.8-10.8)
[2017-04-16 17:12] LABS: ANION GAP 9 mmol/L (5-15); CALCIUM 8.3 MG/DL (8.5-10.1); CARBON DIOXIDE 20 MMOL/L (21-32); CHLORIDE 106 MMOL/L (98-107); CREATININE 2.1 MG/DL (0.55-1.30); POTASSIUM 5.4 MMOL/L (3.5-5.1); SODIUM 135 MMOL/L (136-145)
[2017-04-16 17:17] LABS: ALANINE AMINOTRANSFERASE 29 U/L (12-78); ALBUMIN/GLOBULIN RATIO 0.3 (1.0-2.7); ANION GAP 10 mmol/L (5-15); ASPARTATE AMINO TRANSFERASE 50 U/L (15-37); CALCIUM 8.4 MG/DL (8.5-10.1); CARBON DIOXIDE 19 MMOL/L (21-32); CHLORIDE 111 MMOL/L (98-107); CREATININE 2.4 MG/DL (0.55-1.30); POTASSIUM 4.9 MMOL/L (3.5-5.1); SODIUM 140 MMOL/L (136-145); TOTAL PROTEIN 7.9 G/DL (6.4-8.2)
--- NOTE | 2017-04-16 18:06 | General Progress Note ---
Assessment/Plan Assessment/Plan 1) hepatic encephaloapthy has improved 2) Clinically euvolemic 3) Deana has improved 4) CKD sIV Plan: We started diet today Continue lactulose and Rifaximin Stop IV fluid Labs in AM Subjective Allergies: Coded Allergies: No Known Allergies (Unverified , 03/14/17) Subjective His ammonia level is down to 60, creat is 2.1, more alert Objective Last 24 Hour Vital Signs Date Time Temp Pulse Resp B/P (MAP) Pulse Ox O2 Delivery O2 Flow Rate FiO2 04/16/17 16:00 100 Room Air 04/16/17 16:00 97.8 96 17 154/95 100 04/16/17 12:00 98 Room Air 04/16/17 12:00 97.7 88 19 148/81 98 04/16/17 12:00 85 04/16/17 08:00 81 04/16/17 08:00 99 Room Air 04/16/17 08:00 97.5 86 17 137/79 99 04/16/17 04:17 97.3 73 19 142/81 95 04/16/17 04:00 75 04/16/17 00:00 82 04/15/17 20:00 97.5 81 20 144/84 98 Room Air 04/15/17 20:00 81 Intake and Output 04/16/17 04/17/17 19:00 07:00 Intake Total 225 ml Balance 225 ml Intake IV Total 225 ml Laboratory Tests 04/15/17 20:28: Prothrombin Time 12.7H, Prothromb Time International Ratio 1.2H 04/16/17 15:30: Prothrombin Time 12.6H, Prothromb Time International Ratio 1.2H, White Blood Count 4.9, Red Blood Count 3.27L, Hemoglobin 10.4L, Hematocrit 31.8L, Mean Corpuscular Volume 97, Mean Corpuscular Hemoglobin 31.7H, Mean Corpuscular Hemoglobin Concent 32.5, Red Cell Distribution Width 16.9H, Platelet Count 103L , Mean Platelet Volume 7.6, Neutrophils (%) (Auto) 78.8H, Lymphocytes (%) (Auto ) 11.8L, Monocytes (%) (Auto) 7.0, Eosinophils (%) (Auto) 1.2, Basophils (%) ( Auto) 1.2, Sodium Level 140, Potassium Level 4.9, Chloride Level 111H, Carbon Dioxide Level 19L, Anion Gap 10, Blood Urea Nitrogen 37H, Creatinine 2.4H, Estimat Glomerular Filtration Rate , Glucose Level 214#H, Calcium Level 8.4L, Total Bilirubin 0.5, Aspartate Amino Transf (AST/SGOT) 50H, Alanine Aminotransferase (ALT/SGPT) 29, Alkaline Phosphatase 155H, Ammonia 60H, Total Protein 7.9, Albumin 1.8L, Globulin 6.1, Albumin/Globulin Ratio 0.3L 04/16/17 16:26: Sodium Level 135L, Potassium Level 5.4H, Chloride Level 106, Carbon Dioxide Level 20L, Anion Gap 9, Blood Urea Nitrogen 40H, Creatinine 2.1H, Estimat Glomerular Filtration Rate , Glucose Level 97, Calcium Level 8.3L Height (Feet): 5 Height (Inches): 10.00 Weight (Pounds): 158 General Appearance: WD/WN, no apparent distress EENT: PERRL/EOMI Neck: non-tender, normal alignment Cardiovascular: normal rate, regular rhythm, no JVD Respiratory/Chest: lungs clear Abdomen: normal bowel sounds, non tender, soft Extremities: normal range of motion Neurologic: superintendent system operation II-XII grossly normal, oriented x 3 NIURKA ANAND Apr 16, 2017 18:06
--- NOTE | 2017-04-16 19:14 | Wound Care Consultation ---
Wound Assessment Wound Assessment #1: Wound Number: 1 Wound Present on Admission: Yes New Wound: No Status Change of Wound: No Wound Location Body Site Modif: right, mid Wound Location Body Site: trochanter Wound Type: pressure ulcer Aguila Test: Does not Aguila Pressure Ulcer Stage: IV Wound Thickness: Full Thickness Wound Length: 3.0 Wound Width: 2.5 Wound Depth: 0.5 Percent of Wound [place]/Red: 100 Wound Drainage Description: Serosanguineous Wound Drainage Amount: Moderate Wound Drainage Odor: None/Absent Tissue Surrounding Wound: Indurated Wound Undermining at 12:00: 1.5 Wound Undermining at 3:00: 0.5 Wound Undermining at 6:00: 0.2 Wound Undermining at 9:00: 0.2 Wound General Appearance: Reddened, Draining, Bone Palpable, Muscle Visible Wound Assessment #2: Wound Number: 2 Wound Present on Admission: Yes New Wound: No Status Change of Wound: No Wound Location Body Site Modif: right, proximal Wound Location Body Site: trochanter Wound Type: pressure ulcer Aguila Test: Does not Aguila Pressure Ulcer Stage: IV Wound Thickness: Full Thickness Wound Length: 5.5 Wound Width: 2.5 Wound Depth: 0.4 Percent of Wound [place]/Red: 100 Wound Drainage Description: Serosanguineous Wound Drainage Amount: Moderate Wound Drainage Odor: None/Absent Tissue Surrounding Wound: Macerated Wound General Appearance: Reddened, Draining, Muscle Visible Wound Comment #1 Two stage IV pressure ulcers that are with epithelial tissue on right trochanter #2 Left and right upper arms with intact ecchymosis and open ecchymosis Recommendation -Local wound care per protocol -Keep clean and dry -Turn and dry -Optimize nutrition -Offload both heels -Heel protector on both heels -Low air loss mattress -Assess and f/u accordingly for any changes MARTIN ZHANG RN Apr 16, 2017 19:14
[2017-04-17] VITALS: BP 123/77
[2017-04-17 04:00] VITALS: BP 124/57
[2017-04-17 07:26] LABS: MEAN CORPUSCULAR HGB CONC 34.6 G/DL (32.0-36.0); MEAN CORPUSCULAR VOLUME 96 FL (80-99); MEAN PLATELET VOLUME 7.9 FL (6.5-10.1); PLATELET COUNT 94 K/UL (150-450); RED BLOOD COUNT 3.34 M/UL (4.70-6.10); RED CELL DISTRIBUTION WIDTH 16.4 % (11.6-14.8); WHITE BLOOD COUNT 4.9 K/UL (4.8-10.8)
[2017-04-17 07:53] LABS: ALANINE AMINOTRANSFERASE 26 U/L (12-78); ALBUMIN/GLOBULIN RATIO 0.3 (1.0-2.7); ANION GAP 10 mmol/L (5-15); ASPARTATE AMINO TRANSFERASE 47 U/L (15-37); CALCIUM 8.1 MG/DL (8.5-10.1); CARBON DIOXIDE 19 MMOL/L (21-32); CHLORIDE 111 MMOL/L (98-107); CREATININE 2.1 MG/DL (0.55-1.30); POTASSIUM 4.3 MMOL/L (3.5-5.1); SODIUM 140 MMOL/L (136-145); TOTAL PROTEIN 7.4 G/DL (6.4-8.2)
[2017-04-17 08:00] VITALS: BP 138/88
[2017-04-17] MEDS: Lactulose 20gm/30ml UDC ORAL SCH ×4 (08:07→20:48)
[2017-04-17] MEDS: Heparin 5000 units/ml inj SUBQ SCH ×3 (08:07→20:49)
[2017-04-17 08:42] LABS: ANISOCYTOSIS 1+; BAND NEUTROPHILS % (MANUAL) 0 % (0-8); BASOPHILS % (MANUAL) 1 % (0-2); EOSINOPHILS % (MANUAL) 4 % (0-3); HYPOCHROMASIA 1+; LYMPHOCYTES % (MANUAL) 18 % (20-45); NEUTROPHILS % (MANUAL) 69 % (45-75); PLATELET ESTIMATE DECREASED; PLATELET MORPHOLOGY NORMAL; TOTAL CELLS COUNTED 100
[2017-04-17 12:00] VITALS: BP 124/85
[2017-04-17 16:00] VITALS: BP 119/76
--- NOTE | 2017-04-17 19:53 | General Progress Note ---
Assessment/Plan Assessment/Plan 1) hepatic encephaloapthy has improved 2) Clinically euvolemic 3) Deana has improved 4) CKD IV Plan: If stable can be discharged tomorrow Continue lactulose and Rifaximin Subjective Allergies: Coded Allergies: No Known Allergies (Unverified , 03/14/17) Subjective He is alert, creat is still 2.1, no c/p or sob Objective Last 24 Hour Vital Signs Date Time Temp Pulse Resp B/P (MAP) Pulse Ox O2 Delivery O2 Flow Rate FiO2 04/17/17 16:00 91 04/17/17 16:00 97.7 90 18 119/76 99 04/17/17 12:00 102 04/17/17 12:00 97.9 96 18 124/85 96 04/17/17 08:00 97.7 91 18 138/88 97 04/17/17 08:00 112 04/17/17 04:00 79 04/17/17 04:00 97.5 78 18 124/57 99 Room Air 04/17/17 00:00 97.5 89 20 123/77 91 Room Air 04/17/17 00:00 89 04/16/17 20:00 112 Intake and Output 04/17/17 04/18/17 19:00 07:00 Intake Total 360 ml Balance 360 ml Intake Oral 360 ml # Voids 3 # Bowel Movements 4 Laboratory Tests 04/17/17 06:20: White Blood Count 4.9, Red Blood Count 3.34L, Hemoglobin 11.0L, Hematocrit 31.9L , Mean Corpuscular Volume 96, Mean Corpuscular Hemoglobin 33.0H, Mean Corpuscular Hemoglobin Concent 34.6, Red Cell Distribution Width 16.4H, Platelet Count 94L, Mean Platelet Volume 7.9, Neutrophils (%) (Auto) , Lymphocytes (%) (Auto) , Monocytes (%) (Auto) , Eosinophils (%) (Auto) , Basophils (%) (Auto) , Differential Total Cells Counted 100, Neutrophils % ( Manual) 69, Lymphocytes % (Manual) 18L, Monocytes % (Manual) 8, Eosinophils % ( Manual) 4H, Basophils % (Manual) 1, Band Neutrophils 0, Platelet Estimate DecreasedL, Platelet Morphology Normal, Hypochromasia 1+, Anisocytosis 1+, Sodium Level 140, Potassium Level 4.3, Chloride Level 111H, Carbon Dioxide Level 19L, Anion Gap 10, Blood Urea Nitrogen 36H, Creatinine 2.1H, Estimat Glomerular Filtration Rate , Glucose Level 109H, Calcium Level 8.1L, Total Bilirubin 0.5, Aspartate Amino Transf (AST/SGOT) 47H, Alanine Aminotransferase ( ALT/SGPT) 26, Alkaline Phosphatase 162H, Total Protein 7.4, Albumin 1.7L, Globulin 5.7, Albumin/Globulin Ratio 0.3L Height (Feet): 5 Height (Inches): 10.00 Weight (Pounds): 158 General Appearance: WD/WN, no apparent distress EENT: PERRL/EOMI Neck: non-tender, normal alignment Cardiovascular: normal rate, regular rhythm, no JVD Respiratory/Chest: lungs clear, decreased breath sounds Abdomen: normal bowel sounds, non tender Extremities: normal range of motion Neurologic: histologic aide II-XII grossly normal NIURKA ANAND Apr 17, 2017 19:53
[2017-04-17 20:00] VITALS: BP_SYST 135; BP_SYST 149; BP_DIAS 87; BP_DIAS 96
[2017-04-18] VITALS: BP 135/77
[2017-04-18 04:00] VITALS: BP 111/69
[2017-04-18 08:00] VITALS: BP 129/77
[2017-04-18] MEDS: Lactulose 20gm/30ml UDC ORAL SCH ×4 (09:57→21:27)
[2017-04-18] MEDS: Heparin 5000 units/ml inj SUBQ SCH ×3 (10:01→21:38)
[2017-04-18 12:00] VITALS: BP 125/71
--- NOTE | 2017-04-18 15:53 | General Progress Note ---
Assessment/Plan Assessment/Plan 1) hepatic encephaloapthy has improved 2) Clinically euvolemic 3) Deana has improved 4) CKD IV Plan: Will discharge back to SNF Continue lactulose and Rifaximin Subjective Allergies: Coded Allergies: No Known Allergies (Unverified , 03/14/17) Subjective He is alert,no distress Objective Last 24 Hour Vital Signs Date Time Temp Pulse Resp B/P (MAP) Pulse Ox O2 Delivery O2 Flow Rate FiO2 04/18/17 12:00 97.6 83 18 125/71 Room Air 04/18/17 12:00 97.6 83 18 125/71 Room Air 04/18/17 08:00 97.1 82 19 129/77 Room Air 2.0 04/18/17 08:00 86 04/18/17 04:00 98.2 84 20 111/69 97 Room Air 04/18/17 04:00 88 04/18/17 00:00 88 04/18/17 00:00 97.7 91 20 135/77 100 04/17/17 20:00 98.1 88 20 135/87 Room Air 04/17/17 20:00 97.0 96 21 149/96 100 Room Air 04/17/17 20:00 96 04/17/17 16:00 91 04/17/17 16:00 97.7 90 18 119/76 99 Height (Feet): 5 Height (Inches): 10.00 Weight (Pounds): 158 General Appearance: WD/WN, no apparent distress EENT: PERRL/EOMI Neck: non-tender Cardiovascular: normal peripheral pulses, normal rate, no JVD Respiratory/Chest: lungs clear Abdomen: non tender Extremities: normal range of motion Neurologic: director digital catalogue II-XII grossly normal NIURKA ANAND Apr 18, 2017 15:53
[2017-04-18 16:00] VITALS: BP 124/81
[2017-04-18] MEDS ORDERED: XIFAXAN200 MG ORAL (18:20)
[2017-04-18] MEDS ORDERED: LACTULOSE20 GM/301 ORAL (18:20)
[2017-04-18 20:00] VITALS: BP 123/83
--- NOTE | 2017-04-18 22:46 | Discharge Summary ---
DATE OF ADMISSION: 04/15/2017 DATE OF DISCHARGE: 04/18/2017 DIAGNOSES ON DISCHARGE: 1. Altered mental status secondary to hepatic encephalopathy. 2. Underlying alcoholic cirrhosis. 3. Chronic obstructive pulmonary disease. 4. Underlying chronic kidney disease probably stage 4. HISTORY AND PHYSICAL AND HOSPITAL COURSE: For details, please refer to the History and Physical dictated in the chart. This is a very pleasant 76-year-old male patient of Dr. Chano Cramer that I am covering for, has been a resident of a intermediate, was found to have some altered mental status, was brought to the emergency room of [facility] with ammonia level of 208 and diagnosis of hepatic encephalopathy was made. He also has a baseline serum creatinine in the range of 1.9 to 2 milligram/deciliter. He received some intravenous fluids during the course of hospitalization, also started on lactulose and Xifaxan. With these measures, his ammonia level came down to about 60. The next day, he woke up, he was able to the eat and during the course of hospitalization, essentially being watched and it seemed his mental status has improved remarkably and he is getting discharged back to the intermediate on lactulose 30 gram p.o. q.8 h. as well as rifaximin 50 mg p.o. b.i.d. for total of 10 more days and follow up with Dr. Chano Cramer as outpatient. Nelson Jim M.D. DR: TRISTAN JOB#: [id number] CC: SIVAKUMAR
[2017-04-19] VITALS: BP 106/68
[2017-04-19 04:00] VITALS: BP 130/84
[2017-04-19] MEDS: Heparin 5000 units/ml inj SUBQ SCH (08:04)
[2017-04-19] MEDS: Lactulose 20gm/30ml UDC ORAL SCH ×4 (08:04→21:00)
[2017-04-19 08:08] VITALS: BP 119/82
[2017-04-19 11:22] VITALS: BP 121/75
--- NOTE | 2017-04-19 11:31 | Physician Query ---
PLEASE COMPLETE DOCUMENT BEFORE SIGNING Dear _NIURKA ANAND__ Date: __04/19/17___ Pediatric Physical Therapist/CDS Name: Brooklyn Fitzpatrickikp_ Pediatric Physical Therapist/CDS Phone No.: [phone]__ Exercise your independent professional judgment when responding to the query. Questions asked do not imply a particular answer is desired or expected. We greatly appreciate your clarification on this issue. CLINICAL DOCUMENTATION STATES: Wound Assessment:(04/16/17) Two stage IV pressure ulcers that are with epithelial tissue on right trochanter Please clarify, if you agree with clinical findings mentioned in Wound Assessment Note, from above. PHYSICIAN RESPONSE: [] Yes [] No []Clinically Undeterminable Condition Present on Admission: [] Yes [] No []Clinically Undeterminable Please also document in your Progress Notes and/or Discharge Summary and indicate if the condition was present on admission. NIURKA ANAND MD Date & Time MTDD
--- NOTE | 2017-04-19 14:32 | General Progress Note ---
Assessment/Plan Problem List: (1) Decubitus ulcer ICD Codes: L89.90 - Pressure ulcer of unspecified site, unspecified stage SNOMED: 533386586 Qualifiers: Qualified Codes: L89.214 - Pressure ulcer of right hip, stage 4 (2) Hepatic encephalopathy ICD Codes: K72.90 - Hepatic failure, unspecified without coma SNOMED: 35660857 (3) Cirrhosis with alcoholism ICD Codes: K70.30 - Alcoholic cirrhosis of liver without ascites SNOMED: 200137819 (4) Ascites ICD Codes: R18.8 - Other ascites SNOMED: 605794138 (5) COPD (chronic obstructive pulmonary disease) ICD Codes: J44.9 - Chronic obstructive pulmonary disease, unspecified SNOMED: 66979993 (6) Iron deficiency anemia ICD Codes: D50.9 - Iron deficiency anemia, unspecified SNOMED: 43145947 (7) Renal insufficiency ICD Codes: N28.9 - Disorder of kidney and ureter, unspecified SNOMED: 015979713, 141129861 Assessment/Plan he wishes dnr continue meds Subjective HEENT: Reports: no symptoms Cardiovascular: Reports: no symptoms Respiratory: Reports: shortness of breath Gastrointestinal/Abdominal: Reports: abdomen distended, poor appetite Genitourinary: Reports: no symptoms Neurologic/Psychiatric: Reports: weakness Endocrine: Reports: no symptoms Hematologic/Lymphatic: Reports: anemia Allergies: Coded Allergies: No Known Allergies (Unverified , 03/14/17) Objective Last 24 Hour Vital Signs Date Time Temp Pulse Resp B/P (MAP) Pulse Ox O2 Delivery O2 Flow Rate FiO2 04/19/17 11:22 96.6 86 20 121/75 100 04/19/17 08:08 96.1 89 20 119/82 100 04/19/17 04:00 77 04/19/17 04:00 96.6 78 20 130/84 98 Room Air 04/19/17 00:00 97.9 76 20 106/68 98 Room Air 04/19/17 00:00 82 04/18/17 20:00 97.9 85 20 123/83 97 Room Air 04/18/17 16:33 83 04/18/17 16:00 97.6 83 19 124/81 Room Air Intake and Output 04/19/17 04/20/17 19:00 07:00 Intake Total 990 ml Output Total 400 ml Balance 590 ml Intake Oral 990 ml Output Urine Total 400 ml # Bowel Movements 2 Height (Feet): 5 Height (Inches): 10.00 Weight (Pounds): 158 General Appearance: alert, thin EENT: normal ENT inspection Neck: non-tender, normal alignment Cardiovascular: normal rate, regular rhythm Respiratory/Chest: lungs clear Abdomen: non tender, hepatomegaly, splenomegaly, other - +ascites Edema: no edema noted Arm (L), no edema noted Arm (R), no edema noted Leg (L), no edema noted Leg (R), no edema noted Pedal (L), no edema noted Pedal (R), no edema noted Generalized 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
[2017-04-19 15:17] VITALS: BP 136/99
[2017-04-19 20:00] VITALS: BP 139/95
[2017-04-19] MEDS ORDERED: Spironolactone 50mg tab ORAL SCH (21:00)
[2017-04-19] MEDS: Spironolactone 50mg tab ORAL SCH (21:05)
[2017-04-20] VITALS: BP 131/88
[2017-04-20 04:09] VITALS: BP 108/70
[2017-04-20 07:30] LABS: MEAN CORPUSCULAR HEMOGLOBIN 32.9 PG (27.0-31.0); MEAN CORPUSCULAR HGB CONC 34.1 G/DL (32.0-36.0); MEAN CORPUSCULAR VOLUME 97 FL (80-99); MEAN PLATELET VOLUME 8.5 FL (6.5-10.1); PLATELET COUNT 73 K/UL (150-450); RED BLOOD COUNT 3.01 M/UL (4.70-6.10); RED CELL DISTRIBUTION WIDTH 16.2 % (11.6-14.8); WHITE BLOOD COUNT 4.9 K/UL (4.8-10.8)
--- NOTE | 2017-04-20 07:40 | Nephrology Progress Note ---
Assessment/Plan Problem List: (1) Decubitus ulcer (2) Hepatic encephalopathy (3) Cirrhosis with alcoholism (4) Ascites (5) COPD (chronic obstructive pulmonary disease) (6) Iron deficiency anemia (7) Renal insufficiency Plan contine aldactone lactulose lab check Subjective Constitutional: Reports: weakness HEENT: Reports: no symptoms Neurologic/Psychiatric: Reports: no symptoms Objective Objective Last 24 Hour Vital Signs Date Time Temp Pulse Resp B/P (MAP) Pulse Ox O2 Delivery O2 Flow Rate FiO2 04/20/17 04:09 97.6 71 18 108/70 99 04/20/17 00:00 97.6 84 18 131/88 100 04/19/17 22:37 97.7 04/19/17 20:00 97.7 86 18 139/95 100 04/19/17 15:17 97.0 99 20 136/99 100 Room Air 04/19/17 11:22 96.6 86 20 121/75 100 04/19/17 08:08 96.1 89 20 119/82 100 Laboratory Tests 04/20/17 04:50: White Blood Count [Pending], Red Blood Count [Pending], Hemoglobin [Pending], Hematocrit [Pending], Mean Corpuscular Volume [Pending], Mean Corpuscular Hemoglobin [Pending], Mean Corpuscular Hemoglobin Concent [Pending], Red Cell Distribution Width [Pending], Platelet Count [Pending], Mean Platelet Volume [ Pending], Neutrophils (%) (Auto) [Pending], Lymphocytes (%) (Auto) [Pending], Monocytes (%) (Auto) [Pending], Eosinophils (%) (Auto) [Pending], Basophils (%) (Auto) [Pending], Sodium Level [Pending], Potassium Level [Pending], Chloride Level [Pending], Carbon Dioxide Level [Pending], Blood Urea Nitrogen [Pending], Creatinine [Pending], Estimat Glomerular Filtration Rate [Pending], Glucose Level [Pending], Calcium Level [Pending], Total Bilirubin [Pending], Aspartate Amino Transf (AST/SGOT) [Pending], Alanine Aminotransferase (ALT/SGPT) [Pending] , Alkaline Phosphatase [Pending], Ammonia [Pending], Total Protein [Pending], Albumin [Pending], Globulin [Pending] Height (Feet): 5 Height (Inches): 10.00 Weight (Pounds): 158 General Appearance: no apparent distress, alert EENT: normal ENT inspection Neck: non-tender Cardiovascular: normal rate, regular rhythm Respiratory/Chest: lungs clear, normal breath sounds Abdomen: non tender, hepatomegaly, splenomegaly, other - +ascites Extremities: other - no edema 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
[2017-04-20 07:52] LABS: ALANINE AMINOTRANSFERASE 26 U/L (12-78); ALBUMIN/GLOBULIN RATIO 0.3 (1.0-2.7); ANION GAP 13 mmol/L (5-15); ASPARTATE AMINO TRANSFERASE 36 U/L (15-37); CALCIUM 8.3 MG/DL (8.5-10.1); CARBON DIOXIDE 16 MMOL/L (21-32); CHLORIDE 107 MMOL/L (98-107); CREATININE 2.2 MG/DL (0.55-1.30); POTASSIUM 3.7 MMOL/L (3.5-5.1); SODIUM 135 MMOL/L (136-145); TOTAL PROTEIN 7.6 G/DL (6.4-8.2)
[2017-04-20 08:00] VITALS: BP 131/80
[2017-04-20 08:17] LABS: AMMONIA 22 umol/L (11-32)
[2017-04-20 08:41] LABS: ANISOCYTOSIS 1+; BAND NEUTROPHILS % (MANUAL) 0 % (0-8); BASOPHILS % (MANUAL) 2 % (0-2); EOSINOPHILS % (MANUAL) 2 % (0-3); HYPOCHROMASIA 2+; LYMPHOCYTES % (MANUAL) 24 % (20-45); NEUTROPHILS % (MANUAL) 67 % (45-75); PLATELET ESTIMATE DECREASED; PLATELET MORPHOLOGY NORMAL; TOTAL CELLS COUNTED 100
[2017-04-20] MEDS: Spironolactone 50mg tab ORAL SCH ×2 (08:44→21:12)
[2017-04-20] MEDS: Lactulose 20gm/30ml UDC ORAL SCH ×4 (08:47→21:00)
--- NOTE | 2017-04-20 11:04 | Cardiology Report ---
APPROVED REPORT EKG Measurement Heart [id number] NM [id number] Normal sinus rhythm Minimal voltage criteria for LVH, may be normal variant Borderline ECG
[2017-04-20 12:00] VITALS: BP 122/74
[2017-04-20 16:00] VITALS: BP 131/86
[2017-04-20 20:00] VITALS: BP 114/82
[2017-04-21] VITALS: BP 121/78
[2017-04-21 04:00] VITALS: BP 108/80
[2017-04-21 08:01] VITALS: BP 120/64
[2017-04-21] MEDS: Spironolactone 50mg tab ORAL SCH ×2 (08:04→21:12)
[2017-04-21] MEDS: Lactulose 20gm/30ml UDC ORAL SCH ×4 (09:00→21:00)
--- NOTE | 2017-04-21 11:17 | General Progress Note ---
Assessment/Plan Problem List: (1) Decubitus ulcer ICD Codes: L89.90 - Pressure ulcer of unspecified site, unspecified stage SNOMED: 901283693 Qualifiers: Qualified Codes: L89.214 - Pressure ulcer of right hip, stage 4 (2) Hepatic encephalopathy ICD Codes: K72.90 - Hepatic failure, unspecified without coma SNOMED: 06710689 (3) Cirrhosis with alcoholism ICD Codes: K70.30 - Alcoholic cirrhosis of liver without ascites SNOMED: 127626337 (4) Ascites ICD Codes: R18.8 - Other ascites SNOMED: 580825614 (5) COPD (chronic obstructive pulmonary disease) ICD Codes: J44.9 - Chronic obstructive pulmonary disease, unspecified SNOMED: 12863341 (6) Iron deficiency anemia ICD Codes: D50.9 - Iron deficiency anemia, unspecified SNOMED: 91079581 (7) Renal insufficiency ICD Codes: N28.9 - Disorder of kidney and ureter, unspecified SNOMED: 561481516, 883004508 Assessment/Plan he wishes dnr continue meds, aldactone and lasix, difficulty with placement Subjective HEENT: Reports: no symptoms Cardiovascular: Reports: no symptoms Respiratory: Reports: no symptoms Gastrointestinal/Abdominal: Reports: other - ascites Genitourinary: Reports: no symptoms Endocrine: Reports: no symptoms Hematologic/Lymphatic: Reports: no symptoms Allergies: Coded Allergies: No Known Allergies (Unverified , 03/14/17) Objective Last 24 Hour Vital Signs Date Time Temp Pulse Resp B/P (MAP) Pulse Ox O2 Delivery O2 Flow Rate FiO2 04/21/17 08:01 96.7 91 120/64 98 Room Air 04/21/17 04:00 Room Air 04/21/17 04:00 97.8 81 18 108/80 99 04/21/17 00:00 98.0 82 18 121/78 04/21/17 00:00 96 Room Air 04/20/17 20:00 Room Air 04/20/17 20:00 98.1 83 18 114/82 98 04/20/17 16:00 96.4 93 18 131/86 98 04/20/17 12:00 97.9 69 18 122/74 99 Height (Feet): 5 Height (Inches): 10.00 Weight (Pounds): 158 General Appearance: no apparent distress, thin EENT: normal ENT inspection Neck: normal alignment Cardiovascular: normal rate Respiratory/Chest: lungs clear Abdomen: hepatomegaly, splenomegaly, other - ascites mod Edema: no edema noted Arm (L), no edema noted Arm (R), no edema noted Leg (L), no edema noted Leg (R), no edema noted Pedal (L), no edema noted Pedal (R), no edema noted Generalized Skin: other - hip decub JAMES MALCOLM Apr 21, 2017 11:17
[2017-04-21 12:00] VITALS: BP 117/81
[2017-04-21] MEDS: Furosemide 40mg tab ORAL SCH (12:21)
[2017-04-21 15:49] VITALS: BP 125/74
[2017-04-21 20:00] VITALS: BP 113/73
[2017-04-22 00:19] VITALS: BP 112/68
[2017-04-22 04:00] VITALS: BP 110/59
[2017-04-22 08:00] VITALS: BP 119/72
[2017-04-22] MEDS: Furosemide 40mg tab ORAL SCH (08:34)
[2017-04-22] MEDS: Spironolactone 50mg tab ORAL SCH ×3 (08:34→21:09)
[2017-04-22] MEDS: Lactulose 20gm/30ml UDC ORAL SCH ×5 (08:35→21:01)
[2017-04-22 09:07] LABS: ANION GAP 11 mmol/L (5-15); CALCIUM 8.5 MG/DL (8.5-10.1); CARBON DIOXIDE 16 MMOL/L (21-32); CHLORIDE 108 MMOL/L (98-107); CREATININE 2.5 MG/DL (0.55-1.30); POTASSIUM 4.2 MMOL/L (3.5-5.1); SODIUM 135 MMOL/L (136-145)
[2017-04-22 09:15] LABS: AMMONIA 48 umol/L (11-32)
--- NOTE | 2017-04-22 11:00 | General Progress Note ---
Assessment/Plan Problem List: (1) Decubitus ulcer ICD Codes: L89.90 - Pressure ulcer of unspecified site, unspecified stage SNOMED: 954766241 Qualifiers: Qualified Codes: L89.214 - Pressure ulcer of right hip, stage 4 (2) Hepatic encephalopathy ICD Codes: K72.90 - Hepatic failure, unspecified without coma SNOMED: 94845889 (3) Cirrhosis with alcoholism ICD Codes: K70.30 - Alcoholic cirrhosis of liver without ascites SNOMED: 628053891 (4) Ascites ICD Codes: R18.8 - Other ascites SNOMED: 493923641 (5) COPD (chronic obstructive pulmonary disease) ICD Codes: J44.9 - Chronic obstructive pulmonary disease, unspecified SNOMED: 24881598 (6) Iron deficiency anemia ICD Codes: D50.9 - Iron deficiency anemia, unspecified SNOMED: 54663143 (7) Renal insufficiency ICD Codes: N28.9 - Disorder of kidney and ureter, unspecified SNOMED: 917221265, 536815575 (8) SHELL (acute kidney injury) ICD Codes: N17.9 - Acute kidney failure, unspecified SNOMED: 81724136 Assessment/Plan he wishes dnr continue meds, aldactone and lasix, shell with diuresis observe difficulty with placement Subjective Constitutional: Reports: weakness HEENT: Reports: no symptoms Cardiovascular: Reports: no symptoms Respiratory: Reports: cough Gastrointestinal/Abdominal: Reports: abdomen distended Genitourinary: Reports: no symptoms Neurologic/Psychiatric: Reports: no symptoms Endocrine: Reports: no symptoms Hematologic/Lymphatic: Reports: no symptoms Allergies: Coded Allergies: No Known Allergies (Unverified , 03/14/17) Objective Last 24 Hour Vital Signs Date Time Temp Pulse Resp B/P (MAP) Pulse Ox O2 Delivery O2 Flow Rate FiO2 04/22/17 08:00 97.3 71 20 119/72 99 04/22/17 04:17 97.5 04/22/17 04:00 97.3 70 18 110/59 100 Room Air 04/22/17 00:19 97.5 68 18 112/68 100 Room Air 04/21/17 20:00 97.5 78 18 113/73 100 Room Air 04/21/17 16:00 Room Air 04/21/17 15:49 98.4 81 20 125/74 96 Room Air 04/21/17 12:00 96.8 82 117/81 100 Room Air Laboratory Tests 04/22/17 05:00: Sodium Level 135L, Potassium Level 4.2, Chloride Level 108H, Carbon Dioxide Level 16L, Anion Gap 11, Blood Urea Nitrogen 42H, Creatinine 2.5H, Estimat Glomerular Filtration Rate , Glucose Level 176H, Calcium Level 8.5, Ammonia 48H Height (Feet): 5 Height (Inches): 10.00 Weight (Pounds): 158 General Appearance: no apparent distress, thin EENT: PERRL/EOMI Neck: non-tender, normal alignment Cardiovascular: normal rate Respiratory/Chest: lungs clear Abdomen: hepatomegaly Extremities: other - no edema JAMES MALCOLM Apr 22, 2017 10:59
[2017-04-22 12:00] VITALS: BP 125/78
[2017-04-22] MEDS ORDERED: LORazepam Inj 2mg/ml 1ml IM ONE (13:00)
[2017-04-22] MEDS ORDERED: Haloperidol 5mg/ml Inj IM PRN (15:30)
[2017-04-22 16:00] VITALS: BP 127/80
[2017-04-22 20:00] VITALS: BP 128/71
[2017-04-23] VITALS: BP 128/77
[2017-04-23 04:00] VITALS: BP 111/61
[2017-04-23 08:00] VITALS: BP 145/84
[2017-04-23] MEDS: Spironolactone 50mg tab ORAL SCH ×2 (08:14→20:44)
[2017-04-23] MEDS: Furosemide 40mg tab ORAL SCH (08:14)
[2017-04-23] MEDS: Lactulose 20gm/30ml UDC ORAL SCH ×4 (08:14→20:45)
--- NOTE | 2017-04-23 11:59 | General Progress Note ---
Assessment/Plan Problem List: (1) Decubitus ulcer ICD Codes: L89.90 - Pressure ulcer of unspecified site, unspecified stage SNOMED: 759305155 Qualifiers: Qualified Codes: L89.214 - Pressure ulcer of right hip, stage 4 (2) Hepatic encephalopathy ICD Codes: K72.90 - Hepatic failure, unspecified without coma SNOMED: 93838034 (3) Cirrhosis with alcoholism ICD Codes: K70.30 - Alcoholic cirrhosis of liver without ascites SNOMED: 726295538 (4) Ascites ICD Codes: R18.8 - Other ascites SNOMED: 641940837 (5) COPD (chronic obstructive pulmonary disease) ICD Codes: J44.9 - Chronic obstructive pulmonary disease, unspecified SNOMED: 34154545 (6) Iron deficiency anemia ICD Codes: D50.9 - Iron deficiency anemia, unspecified SNOMED: 70650392 (7) Renal insufficiency ICD Codes: N28.9 - Disorder of kidney and ureter, unspecified SNOMED: 722687451, 333652460 (8) SHELL (acute kidney injury) ICD Codes: N17.9 - Acute kidney failure, unspecified SNOMED: 68709238 Assessment/Plan he wishes dnr continue meds, aldactone and lasix, shell with diuresis observe difficulty with placement wantedd to leave [facility] but explained deecubitus can get worse Subjective Constitutional: Reports: weakness HEENT: Reports: no symptoms Cardiovascular: Reports: no symptoms Respiratory: Reports: cough Gastrointestinal/Abdominal: Reports: abdomen distended Genitourinary: Reports: no symptoms Neurologic/Psychiatric: Reports: no symptoms Endocrine: Reports: no symptoms Hematologic/Lymphatic: Reports: no symptoms Allergies: Coded Allergies: No Known Allergies (Unverified , 03/14/17) Objective Last 24 Hour Vital Signs Date Time Temp Pulse Resp B/P (MAP) Pulse Ox O2 Delivery O2 Flow Rate FiO2 04/23/17 08:00 97.5 94 20 145/84 100 04/23/17 04:00 98.2 78 21 111/61 99 04/23/17 00:00 98.1 77 21 128/77 100 04/22/17 20:00 97.9 83 21 128/71 99 04/22/17 16:00 97.7 73 20 127/80 100 04/22/17 12:00 97.7 74 20 125/78 100 Height (Feet): 5 Height (Inches): 10.00 Weight (Pounds): 158 General Appearance: thin EENT: PERRL/EOMI Neck: non-tender Cardiovascular: normal rate, regular rhythm Respiratory/Chest: lungs clear Abdomen: non tender, hepatomegaly, splenomegaly, other - ascites Edema: no edema noted Arm (L), no edema noted Arm (R), no edema noted Leg (L), no edema noted Leg (R), no edema noted Pedal (L), no edema noted Pedal (R), no edema noted Generalized JAMES MALCOLM Apr 23, 2017 11:59
[2017-04-23 12:00] VITALS: BP 134/85
[2017-04-23 16:00] VITALS: BP 130/82
--- NOTE | 2017-04-23 19:52 | Consultation ---
History of Present Illness General Date patient seen: Apr 22, 2017 Chief Complaint: Altered Level of Consciousness Present Illness HPI 76 yo male with mmp he was wandering around the unit and was disorganized, at times agitated, the pt is a poor historian and has cognitive impairment. Allergies: Coded Allergies: No Known Allergies (Unverified , 03/14/17) Medication History Scheduled Ascorbic Acid* (Vitamin C*), 500 MG ORAL DAILY, (Reported) Docusate Sodium* (Docusate Sodium*), 100 MG ORAL TWICE A DAY, (Reported) Escitalopram Oxalate* (Lexapro*), 5 MG ORAL DAILY, (Reported) Ferrous Sulfate (Ferrousul), 325 MG PO TWICE A DAY, (Reported) Lactulose (Lactulose*), 30 ML ORAL QID, (Reported) Metformin Hcl* (Metformin Hcl*), 1,000 MG ORAL BID, (Reported) Pantoprazole* (Pantoprazole*), 40 MG ORAL DAILY, (Reported) Rifaximin* (Xifaxan*), 400 MG ORAL Q8HR, (Reported) Spironolactone (Aldactone), 50 MG ORAL DAILY Scheduled PRN Acetaminophen (Tylenol), 650 MG ORAL Q6H PRN for Prn Pain/Headache/Temp > 101, ( Reported) Ondansetron* (Zofran*), 4 MG ORAL Q6H PRN for Nausea & Vomiting, (Reported) Zolpidem Tartrate* (Zolpidem Tartrate*), 5 MG ORAL BEDTIME PRN for Insomnia, ( Reported) Miscellaneous Medications Lipase/Protease/Amylase (Creon Dr 12,000 Units Capsule), 1 EACH PO, (Reported) Discontinued Medications Cephalexin* (Keflex*), 500 MG ORAL THREE TIMES A DAY, (Reported) Discontinued Reason: Medication dose changed Hydrocodone Bit/Acetaminophen 5-325* (H[place]ie 5-325 Tablet*), 1 TAB ORAL Q6HR PRN for For Pain, (Reported) Discontinued Reason: MD discontinued med Nutritional Supplement (Nutren 2.0), Unknown Dose PO, (Reported) Discontinued Reason: MD discontinued med Patient History History Provided By: Patient, Medical Record, PMD Healthcare decision maker Resuscitation status Advanced Directive on File Past Medical/Surgical History Past Medical/Surgical History: (1) Renal insufficiency (2) UTI (urinary tract infection) (3) Hepatic encephalopathy (4) Abscess (5) Decubitus ulcer (6) COPD (chronic obstructive pulmonary disease) (7) Ascites (8) Iron deficiency anemia (9) Cirrhosis with alcoholism (10) SHELL (acute kidney injury) Review of Systems Psychiatric: Reports: prior hx, anxiety, emotional problems, hallucinations Physical Exam General Appearance: WD/WN, no apparent distress, alert Neurologic: alert, oriented x 3, responsive, depressed affect Last 24 Hour Vital Signs Date Time Temp Pulse Resp B/P (MAP) Pulse Ox O2 Delivery O2 Flow Rate FiO2 04/23/17 16:00 97.7 84 20 130/82 98 04/23/17 12:00 Room Air 04/23/17 12:00 97.3 80 20 134/85 98 04/23/17 08:00 97.5 94 20 145/84 100 04/23/17 08:00 Room Air 04/23/17 04:00 98.2 78 21 111/61 99 04/23/17 00:00 98.1 77 21 128/77 100 04/22/17 20:00 97.9 83 21 128/71 99 Intake and Output 04/23/17 04/24/17 19:00 07:00 Intake Total 340 ml Balance 340 ml Intake Oral 340 ml # Voids 5 Height (Feet): 5 Height (Inches): 10.00 Weight (Pounds): 158 Medications Current Medications Medications (Trade) Dose Ordered Sig/Ehsan Route PRN Reason Start Time Stop Time Status Last Admin Dose Admin Acetaminophen (Tylenol) 650 mg Q6H PRN ORAL Mild Pain/Temp > 100.5 04/19/17 16:30 05/17/17 16:29 04/23/17 08:15 Dextrose (Dextrose 50%) STAT PRN IV Hypoglycemia 04/19/17 16:30 05/15/17 16:29 Furosemide (Lasix) 40 mg DAILY ORAL 04/21/17 11:30 05/21/17 11:29 04/23/17 08:14 Haloperidol Lactate (Haldol) 5 mg Q4H PRN IM Agitation 04/22/17 15:30 05/22/17 15:29 Lactulose (Cephulac) 30 gm FOUR TIMES A DAY ORAL 04/19/17 18:00 05/15/17 20:59 04/23/17 08:14 Mirtazapine (Remeron) 15 mg BEDTIME ORAL 04/22/17 21:00 05/22/17 20:59 04/22/17 21:09 Ranitidine HCl (Zantac) 150 mg BEDTIME ORAL 04/19/17 21:00 05/19/17 20:59 04/22/17 21:09 Spironolactone (Aldactone) 50 mg EVERY 12 HOURS ORAL 04/19/17 21:00 05/19/17 20:59 04/23/17 08:14 Assessment/Plan Status: stable Assessment/Plan Agitation cognitive impairment [facility] [place] [facility] M[facility] Apr 23, 2017 19:52
[2017-04-23 20:00] VITALS: BP 119/81
--- NOTE | 2017-04-23 22:05 | Wound Care Consultation ---
Wound Assessment Wound Assessment #1: Wound Present on Admission: Yes New Wound: No Status Change of Wound: No Wound Location Body Site Modif: right, proximal Wound Location Body Site: trochanter Wound Type: pressure ulcer Aguila Test: Does not Aguila Pressure Ulcer Stage: IV Wound Thickness: Full Thickness Wound Length: 5.5 Wound Width: 2.5 Wound Depth: 0.4 Percent of Wound Reinholds/Red: 100 Wound Drainage Description: Serosanguineous Wound Drainage Amount: Moderate Wound Drainage Odor: None/Absent Tissue Surrounding Wound: Macerated Wound General Appearance: Reddened, Draining, Muscle Visible Wound Assessment #2: Wound Number: 2 Wound Present on Admission: Yes New Wound: No Status Change of Wound: No Wound Location Body Site Modif: right, mid Wound Location Body Site: trochanter Wound Type: pressure ulcer Aguila Test: Does not Aguila Pressure Ulcer Stage: IV Wound Thickness: Full Thickness Wound Length: 3.0 Wound Width: 2.5 Wound Depth: 1.0 Percent of Wound Reinholds/Red: 100 Wound Drainage Amount: Moderate Wound Drainage Odor: None/Absent Tissue Surrounding Wound: Macerated Wound General Appearance: Reddened, Draining, Bone Palpable, Muscle Visible Wound Comment #1 Two stage IV pressure ulcers that are with epithelial tissue on right trochanter. Noted with good progress. #2 Left and right upper arms with intact ecchymosis and open ecchymosis. Noted with good progress Reassessment done. pt ambulatory. No c/o pain noted. No deterioration at this time. wound bed with 100% beefy red granulating tissue. Will cont same wound care order and recommendations Below. Recommendation -Local wound care per protocol -Keep clean and dry -Turn and dry -Optimize nutrition -Offload both heels while in bed -Heel protector on both heels while in bed -Low air loss mattress -Assess and f/u accordingly for any changes MARTIN ZHANG RN Apr 23, 2017 22:05
[2017-04-24] VITALS: BP 131/91
[2017-04-24 04:00] VITALS: BP 116/73
[2017-04-24 08:00] VITALS: BP 141/88
[2017-04-24] MEDS: Lactulose 20gm/30ml UDC ORAL SCH ×6 (08:26→21:07)
[2017-04-24] MEDS: Furosemide 40mg tab ORAL SCH (08:26)
[2017-04-24] MEDS: Spironolactone 50mg tab ORAL SCH ×2 (08:26→21:06)
--- NOTE | 2017-04-24 09:04 | General Progress Note ---
Assessment/Plan Problem List: (1) Decubitus ulcer ICD Codes: L89.90 - Pressure ulcer of unspecified site, unspecified stage SNOMED: 069173681 Qualifiers: Qualified Codes: L89.214 - Pressure ulcer of right hip, stage 4 (2) Hepatic encephalopathy ICD Codes: K72.90 - Hepatic failure, unspecified without coma SNOMED: 65869832 (3) Cirrhosis with alcoholism ICD Codes: K70.30 - Alcoholic cirrhosis of liver without ascites SNOMED: 622708660 (4) Ascites ICD Codes: R18.8 - Other ascites SNOMED: 152901780 (5) COPD (chronic obstructive pulmonary disease) ICD Codes: J44.9 - Chronic obstructive pulmonary disease, unspecified SNOMED: 32106708 (6) Iron deficiency anemia ICD Codes: D50.9 - Iron deficiency anemia, unspecified SNOMED: 45657132 (7) Renal insufficiency ICD Codes: N28.9 - Disorder of kidney and ureter, unspecified SNOMED: 864751534, 137627189 (8) SHELL (acute kidney injury) ICD Codes: N17.9 - Acute kidney failure, unspecified SNOMED: 74578775 Assessment/Plan he wishes dnr continue meds, aldactone and lasix, shell with diuresis observe difficulty with placement wantedd to leave [facility] but explained deecubitus can get worse lab pend Subjective Constitutional: Reports: weakness HEENT: Reports: no symptoms Cardiovascular: Reports: no symptoms Respiratory: Reports: cough Gastrointestinal/Abdominal: Reports: abdomen distended Genitourinary: Reports: no symptoms Neurologic/Psychiatric: Reports: no symptoms Hematologic/Lymphatic: Reports: no symptoms Allergies: Coded Allergies: No Known Allergies (Unverified , 03/14/17) Objective Last 24 Hour Vital Signs Date Time Temp Pulse Resp B/P (MAP) Pulse Ox O2 Delivery O2 Flow Rate FiO2 04/24/17 08:00 96.4 87 20 141/88 100 04/24/17 04:00 98.1 76 21 116/73 100 04/24/17 00:00 97.5 98 21 131/91 100 04/23/17 20:00 97.3 92 21 119/81 98 04/23/17 16:00 97.7 84 20 130/82 98 04/23/17 12:00 Room Air 04/23/17 12:00 97.3 80 20 134/85 98 Laboratory Tests 04/24/17 07:15: White Blood Count [Pending], Red Blood Count [Pending], Hemoglobin [Pending], Hematocrit [Pending], Mean Corpuscular Volume [Pending], Mean Corpuscular Hemoglobin [Pending], Mean Corpuscular Hemoglobin Concent [Pending], Red Cell Distribution Width [Pending], Platelet Count [Pending], Mean Platelet Volume [ Pending], Neutrophils (%) (Auto) [Pending], Lymphocytes (%) (Auto) [Pending], Monocytes (%) (Auto) [Pending], Eosinophils (%) (Auto) [Pending], Basophils (%) (Auto) [Pending], Sodium Level [Pending], Potassium Level [Pending], Chloride Level [Pending], Carbon Dioxide Level [Pending], Blood Urea Nitrogen [Pending], Creatinine [Pending], Estimat Glomerular Filtration Rate [Pending], Glucose Level [Pending], Calcium Level [Pending], Ammonia [Pending] Height (Feet): 5 Height (Inches): 10.00 Weight (Pounds): 158 General Appearance: no apparent distress EENT: normal ENT inspection Neck: normal alignment Cardiovascular: normal rate Respiratory/Chest: lungs clear Abdomen: hepatomegaly, splenomegaly, other - ascites Edema: no edema noted Arm (L), no edema noted Arm (R), no edema noted Leg (L), no edema noted Leg (R), no edema noted Pedal (L), no edema noted Pedal (R), no edema noted 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
[2017-04-24 09:16] LABS: ANION GAP 10 mmol/L (5-15); CALCIUM 8.6 MG/DL (8.5-10.1); CARBON DIOXIDE 20 MMOL/L (21-32); CHLORIDE 108 MMOL/L (98-107); CREATININE 2.6 MG/DL (0.55-1.30); SODIUM 138 MMOL/L (136-145)
[2017-04-24 09:22] LABS: MEAN CORPUSCULAR HGB CONC 32.5 G/DL (32.0-36.0); MEAN CORPUSCULAR VOLUME 98 FL (80-99); MEAN PLATELET VOLUME 9.9 FL (6.5-10.1); PLATELET COUNT 96 K/UL (150-450); RED BLOOD COUNT 3.31 M/UL (4.70-6.10); RED CELL DISTRIBUTION WIDTH 16.5 % (11.6-14.8); WHITE BLOOD COUNT 6.1 K/UL (4.8-10.8)
[2017-04-24 09:32] LABS: AMMONIA 60 umol/L (11-32)
[2017-04-24 10:39] LABS: ANISOCYTOSIS 1+; BAND NEUTROPHILS % (MANUAL) 0 % (0-8); BASOPHILS % (MANUAL) 0 % (0-2); EOSINOPHILS % (MANUAL) 4 % (0-3); HYPOCHROMASIA 1+; LYMPHOCYTES % (MANUAL) 24 % (20-45); NEUTROPHILS % (MANUAL) 67 % (45-75); PLATELET ESTIMATE DECREASED; PLATELET MORPHOLOGY NORMAL; TOTAL CELLS COUNTED 100
[2017-04-24 12:00] VITALS: BP 139/87
[2017-04-24 16:00] VITALS: BP 140/82
[2017-04-24 20:00] VITALS: BP 136/76
--- NOTE | 2017-04-24 23:03 | General Progress Note ---
Assessment/Plan Status: stable, progressing Subjective Date patient seen: Apr 24, 2017 Neurologic/Psychiatric: Reports: anxiety, emotional problems Allergies: Coded Allergies: No Known Allergies (Unverified , 03/14/17) Subjective the pt is sleeping better decrease anxiety Objective Last 24 Hour Vital Signs Date Time Temp Pulse Resp B/P (MAP) Pulse Ox O2 Delivery O2 Flow Rate FiO2 04/24/17 20:00 97.5 99 21 136/76 100 04/24/17 16:00 97.0 83 18 140/82 100 04/24/17 12:00 97.0 84 18 139/87 100 04/24/17 08:00 96.4 87 20 141/88 100 04/24/17 04:00 98.1 76 21 116/73 100 04/24/17 00:00 97.5 98 21 131/91 100 Intake and Output 04/24/17 04/25/17 19:00 07:00 Intake Total 1100 ml Balance 1100 ml Intake Oral 1100 ml # Voids 5 Laboratory Tests 04/24/17 07:15: White Blood Count 6.1, Red Blood Count 3.31L, Hemoglobin 10.6L, Hematocrit 32.6L , Mean Corpuscular Volume 98, Mean Corpuscular Hemoglobin 32.0H, Mean Corpuscular Hemoglobin Concent 32.5, Red Cell Distribution Width 16.5H, Platelet Count 96L, Mean Platelet Volume 9.9, Neutrophils (%) (Auto) , Lymphocytes (%) (Auto) , Monocytes (%) (Auto) , Eosinophils (%) (Auto) , Basophils (%) (Auto) , Differential Total Cells Counted 100, Neutrophils % ( Manual) 67, Lymphocytes % (Manual) 24, Monocytes % (Manual) 5, Eosinophils % ( Manual) 4H, Basophils % (Manual) 0, Band Neutrophils 0, Platelet Estimate DecreasedL, Platelet Morphology Normal, Hypochromasia 1+, Anisocytosis 1+, Sodium Level 138, Potassium Level 5.0, Chloride Level 108H, Carbon Dioxide Level 20L, Anion Gap 10, Blood Urea Nitrogen 45H, Creatinine 2.6H, Estimat Glomerular Filtration Rate , Glucose Level 206H, Calcium Level 8.6, Ammonia 60H Height (Feet): 5 Height (Inches): 10.00 Weight (Pounds): 158 General Appearance: no apparent distress, alert Neurologic: alert, oriented x 3, responsive, normal mood/affect Valentina Ugarte M.D. Apr 24, 2017 23:03
--- NOTE | 2017-04-24 23:04 | Geriatric Progress Note ---
Subjective Interval Events 04/23 Mood/Memory: Reports: prior hx, anxiety, depressed feelings Geriatric Geriatric Last 24 Hour Vital Signs Date Time Temp Pulse Resp B/P (MAP) Pulse Ox O2 Delivery O2 Flow Rate FiO2 04/24/17 20:00 97.5 99 21 136/76 100 04/24/17 16:00 97.0 83 18 140/82 100 04/24/17 12:00 97.0 84 18 139/87 100 04/24/17 08:00 96.4 87 20 141/88 100 04/24/17 04:00 98.1 76 21 116/73 100 04/24/17 00:00 97.5 98 21 131/91 100 Intake and Output 04/24/17 04/25/17 19:00 07:00 Intake Total 1100 ml Balance 1100 ml Intake Oral 1100 ml # Voids 5 Laboratory Tests Test 04/24/17 07:15 White Blood Count 6.1 K/UL (4.8-10.8) Red Blood Count 3.31 M/UL (4.70-6.10) L Hemoglobin 10.6 G/DL (14.2-18.0) L Hematocrit 32.6 % (42.0-52.0) L Mean Corpuscular Volume 98 FL (80-99) Mean Corpuscular Hemoglobin 32.0 PG (27.0-31.0) H Mean Corpuscular Hemoglobin Concent 32.5 G/DL (32.0-36.0) Red Cell Distribution Width 16.5 % (11.6-14.8) H Platelet Count 96 K/UL (150-450) L Mean Platelet Volume 9.9 FL (6.5-10.1) Neutrophils (%) (Auto) % (45.0-75.0) Lymphocytes (%) (Auto) % (20.0-45.0) Monocytes (%) (Auto) % (1.0-10.0) Eosinophils (%) (Auto) % (0.0-3.0) Basophils (%) (Auto) % (0.0-2.0) Differential Total Cells Counted 100 Neutrophils % (Manual) 67 % (45-75) Lymphocytes % (Manual) 24 % (20-45) Monocytes % (Manual) 5 % (1-10) Eosinophils % (Manual) 4 % (0-3) H Basophils % (Manual) 0 % (0-2) Band Neutrophils 0 % (0-8) Platelet Estimate Decreased L Platelet Morphology Normal Hypochromasia 1+ Anisocytosis 1+ Sodium Level 138 MMOL/L (136-145) Potassium Level 5.0 MMOL/L (3.5-5.1) Chloride Level 108 MMOL/L (98-107) H Carbon Dioxide Level 20 MMOL/L (21-32) L Anion Gap 10 mmol/L (5-15) Blood Urea Nitrogen 45 mg/dL (7-18) H Creatinine 2.6 MG/DL (0.55-1.30) H Estimat Glomerular Filtration Rate mL/min (>60) Glucose Level 206 MG/DL (74-106) H Calcium Level 8.6 MG/DL (8.5-10.1) Ammonia 60 umol/L (11-32) H Current Medications Medications (Trade) Dose Ordered Sig/Ehsan Route PRN Reason Start Time Stop Time Status Last Admin Dose Admin Acetaminophen (Tylenol) 650 mg Q6H PRN ORAL Mild Pain/Temp > 100.5 04/19/17 16:30 05/17/17 16:29 04/23/17 20:44 Dextrose (Dextrose 50%) STAT PRN IV Hypoglycemia 04/19/17 16:30 05/15/17 16:29 Furosemide (Lasix) 40 mg DAILY ORAL 04/21/17 11:30 05/21/17 11:29 04/24/17 08:26 Haloperidol Lactate (Haldol) 5 mg Q4H PRN IM Agitation 04/22/17 15:30 05/22/17 15:29 Lactulose (Cephulac) 30 gm FOUR TIMES A DAY ORAL 04/19/17 18:00 05/15/17 20:59 04/24/17 17:40 Mirtazapine (Remeron) 15 mg BEDTIME ORAL 04/22/17 21:00 05/22/17 20:59 04/24/17 21:06 Ranitidine HCl (Zantac) 150 mg BEDTIME ORAL 04/19/17 21:00 05/19/17 20:59 04/24/17 21:06 Spironolactone (Aldactone) 50 mg EVERY 12 HOURS ORAL 04/19/17 21:00 05/19/17 20:59 12/18/17 21:06 Height (Feet): 5 Height (Inches): 10.00 Weight (Pounds): 158 Valentina Ugarte M.D. Apr 24, 2017 23:04
[2017-04-25] VITALS: BP 110/73
[2017-04-25 04:00] VITALS: BP 121/78
[2017-04-25 08:22] VITALS: BP 124/76
[2017-04-25] MEDS: Furosemide 40mg tab ORAL SCH (08:26)
[2017-04-25] MEDS: Lactulose 20gm/30ml UDC ORAL SCH ×3 (08:26→13:00)
[2017-04-25] MEDS: Spironolactone 50mg tab ORAL SCH (08:26)
--- NOTE | 2017-04-25 08:29 | General Progress Note ---
Assessment/Plan Problem List: (1) Decubitus ulcer ICD Codes: L89.90 - Pressure ulcer of unspecified site, unspecified stage SNOMED: 160818664 Qualifiers: Qualified Codes: L89.214 - Pressure ulcer of right hip, stage 4 (2) Hepatic encephalopathy ICD Codes: K72.90 - Hepatic failure, unspecified without coma SNOMED: 34670469 (3) Cirrhosis with alcoholism ICD Codes: K70.30 - Alcoholic cirrhosis of liver without ascites SNOMED: 881136625 (4) Ascites ICD Codes: R18.8 - Other ascites SNOMED: 776642625 (5) COPD (chronic obstructive pulmonary disease) ICD Codes: J44.9 - Chronic obstructive pulmonary disease, unspecified SNOMED: 01954325 (6) Iron deficiency anemia ICD Codes: D50.9 - Iron deficiency anemia, unspecified SNOMED: 00640610 (7) Renal insufficiency ICD Codes: N28.9 - Disorder of kidney and ureter, unspecified SNOMED: 748591242, 175731238 (8) SHELL (acute kidney injury) ICD Codes: N17.9 - Acute kidney failure, unspecified SNOMED: 93330928 Assessment/Plan he wishes dnr continue meds, aldactone and lasix, shell with diuresis observe difficulty with placement wantedd to leave [facility] but explained deecubitus can get worse lab pend Subjective Constitutional: Reports: weakness HEENT: Reports: no symptoms Cardiovascular: Reports: no symptoms Respiratory: Reports: cough Gastrointestinal/Abdominal: Reports: abdomen distended Genitourinary: Reports: no symptoms Neurologic/Psychiatric: Reports: no symptoms Endocrine: Reports: no symptoms Hematologic/Lymphatic: Reports: no symptoms Allergies: Coded Allergies: No Known Allergies (Unverified , 03/14/17) Objective Last 24 Hour Vital Signs Date Time Temp Pulse Resp B/P (MAP) Pulse Ox O2 Delivery O2 Flow Rate FiO2 04/25/17 08:22 97.9 85 18 124/76 98 Room Air 04/25/17 04:00 97.9 84 20 121/78 96 Room Air 04/25/17 04:00 96 Room Air 04/25/17 00:00 98 Room Air 04/25/17 00:00 97.5 88 21 110/73 98 04/24/17 20:00 100 Room Air 04/24/17 20:00 97.5 99 21 136/76 100 12/18/17 16:00 97.0 83 18 140/82 100 04/24/17 12:00 97.0 84 18 139/87 100 Height (Feet): 5 Height (Inches): 10.00 Weight (Pounds): 158 General Appearance: no apparent distress, thin EENT: normal ENT inspection Neck: non-tender Cardiovascular: normal rate, regular rhythm Respiratory/Chest: lungs clear Abdomen: non tender, soft, hepatomegaly, splenomegaly, other - ascites JAMES MALCOLM Apr 25, 2017 08:29
[2017-04-25 12:00] VITALS: BP 138/77
--- NOTE | 2017-04-25 23:06 | General Progress Note ---
Assessment/Plan Status: doing well, stable, progressing Subjective Date patient seen: Apr 25, 2017 Neurologic/Psychiatric: Reports: anxiety, depressed Allergies: Coded Allergies: No Known Allergies (Unverified , 03/14/17) Subjective the pt is sleeping better decrease anxiety Objective Last 24 Hour Vital Signs Date Time Temp Pulse Resp B/P (MAP) Pulse Ox O2 Delivery O2 Flow Rate FiO2 04/25/17 12:00 97.3 91 18 138/77 96 Room Air 04/25/17 08:22 97.9 85 18 124/76 98 Room Air 04/25/17 04:00 97.9 84 20 121/78 96 Room Air 04/25/17 04:00 96 Room Air 04/25/17 00:00 98 Room Air 04/25/17 00:00 97.5 88 21 110/73 98 Height (Feet): 5 Height (Inches): 10.00 Weight (Pounds): 158 General Appearance: no apparent distress, alert Valentina Ugarte M.D. Apr 25, 2017 23:06
--- NOTE | 2017-04-27 05:30 | Discharge Summary ---
DATE OF ADMISSION: 04/15/2017 DATE OF DISCHARGE: 04/25/2017 PERTINENT HISTORY: See the note by Dr. Jim who was on-call for me. The patient is a 76-year-old man with cirrhosis, COPD and recent drainage of abscess and decubitus right hip. He developed severe alteration in mental status and had a high ammonia level of 208 in the emergency room. He has elevated BUN and creatinine. PERTINENT PHYSICAL FINDINGS: See Dr. Jim's notes. HEAD, EYES, EARS, NOSE, AND THROAT: Unremarkable. LUNGS: Clear. HEART: Regular rhythm. ABDOMEN: Shows soft ascites. NEUROLOGIC: He had asterixis and lethargy on admission. COURSE IN THE HOSPITAL: The patient was started on lactulose and his encephalopathy improved. He continued to have severe ascites and was given low-dose diuretics here for chronic kidney disease and his renal function was monitored. He received decubitus care for stage IV right hip decubitus. There was an issue of placement problem, as the patient was accused of using illicit drugs at his prior senior care and social service was involved in discharge planning and finally found a new place for him to go and he was discharged in stable condition. FINAL DIAGNOSES: 1. Hepatic encephalopathy. 2. Cirrhosis of liver. 3. Ascites. 4. Right hip stage IV decubitus. 5. Chronic obstructive pulmonary disease. 6. Chronic kidney disease stage 3 or 4. DISCHARGE DISPOSITION: On a low-salt diet. DISCHARGE MEDICATIONS: Per the discharge medication list and wound care. FOLLOWUP: Follow up by a new physician assigned by his facility. Chano Cramer M.D. DR: LISA JOB#: [id number] CC:
== END 2017-04-25 16:15 | DRG 432 ==
LOC: EDBD 09:56 → EMR 10:16 → EDBEDREQ 10:19 → 2E 10:21 → EDBEDREQ 11:39 → 2E 14:34 → 4E 04-19 15:42
DX: K70.40 Alcoholic hepatic failure without coma (principal); L89.214 Pressure ulcer of right hip, stage 4; K70.31 Alcoholic cirrhosis of liver with ascites; N17.9 Acute kidney failure, unspecified; N18.4 Chronic kidney disease, stage 4 (severe); J44.9 Chronic obstructive pulmonary disease, unspecified; E86.0 Dehydration; N18.9 Chronic kidney disease, unspecified; I12.9 Hypertensive chronic kidney disease with stage 1 through stage 4 chronic kidney disease, or unspecified chronic kidney disease; F17.200 Nicotine dependence, unspecified, uncomplicated; F10.21 Alcohol dependence, in remission
CPT/HCPCS: 36415; 71010; 76942; 80048; 80053; 80307; 80329; 81003; 82140; 82550; 82962; 83605; 84443; 85007; 85025; 85610; 85730; 87040; 87070; 87081; 87205; 93005; 99285

== ENCOUNTER 2017-05-11 11:38 | Emergency (ER) | payer MEDICARE, MEDICAID ==
[~2017-05-11] VITALS: Ht 177.8 cm; Wt 68.0 kg
[~2017-05-11 11:38] MED LIST changes: +LACTULOSE20 GM/301 ORAL; +XIFAXAN200 MG ORAL
[2017-05-11 11:50] VITALS: BP 144/84
[2017-05-11 12:47] VITALS: BP 140/86
--- NOTE | 2017-05-11 12:53 | Emergency Room Report ---
History of Present Illness General Chief Complaint: Abdominal Pain Source: Patient, EMS Present Illness HPI 76-year-old male brought in by ambulance for increased abdominal girth due to ascites Stated last paracentesis was 0.5 months ago, known alcoholic liver cirrhosis. Denies fever chills. Denies nausea vomiting or diarrhea. Denies other medical problems Allergies: Coded Allergies: No Known Allergies (Unverified , 03/14/17) Patient History Past Medical History: other - liver failure/cirrrhosis Past Surgical History: none Pertinent Family History: none Social History: Denies: smoking, alcohol use, drug use Immunizations: UTD Reviewed Nursing Documentation: PMH: Agreed, PSxH: Agreed Nursing Documentation-PMH Past Medical History: No History, Except For Hx Cardiac Problems: Yes - HTN Hx Cancer: No Hx Gastrointestinal Problems: No - cirrhosis Hx Neurological Problems: Yes Review of Systems All Other Systems: negative except mentioned in HPI Physical Exam Vital Signs Date Time Temp Pulse Resp B/P (MAP) Pulse Ox O2 Delivery O2 Flow Rate FiO2 05/11/17 11:40 97.9 86 20 133/82 100 Room Air Sp02 EP Interpretation: reviewed, normal General Appearance: normal inspection, well appearing, no apparent distress, alert, GCS 15, non-toxic Head: normocephalic, atraumatic Eyes: bilateral eye PERRL, bilateral eye EOMI ENT: normal ENT inspection, hearing grossly normal, normal pharynx, no angioedema, normal voice, TMs + canals normal, uvula midline, moist mucus membranes Neck: normal inspection, full range of motion, supple, thyroid normal, no meningismus, no bony tend Respiratory: normal inspection, lungs clear, normal breath sounds, no rhonchi, no respiratory distress, no retraction, no accessory muscle use, no wheezing, speaking full sentences Cardiovascular #1: regular rate, rhythm, no edema, no JVD, normal capillary refill Gastrointestinal: normal inspection, normal bowel sounds, non tender, soft, no mass, no peritonitis, no guarding, no hernia, no pulsatile mass, distended, hepatomegaly Genitourinary: no CVA tenderness Musculoskeletal: normal inspection, back normal, normal range of motion, no calf tenderness, pelvis stable, Madina's Sign negative Neurologic: normal inspection, alert, oriented x3, responsive, drawbridge operator III-XII nml as tested, motor strength/tone normal, cerebellar normal, normal gait, speech normal Psychiatric: normal inspection, judgement/insight normal, mood/affect normal, no suicidal/homicidal ideation, no delusions Skin: normal inspection, normal color, no rash Lymphatic: normal inspection, no adenopathy Medical Decision Making Diagnostic Impression: Primary Impression: Ascites Qualified Codes: K70.31 - Alcoholic cirrhosis of liver with ascites Additional Impressions: Distended abdomen CKD (chronic kidney disease) Qualified Codes: N18.9 - Chronic kidney disease, unspecified ER Course Enlarged abdomen likely due to hepatomegaly and alcoholic liver cirrhosis ascites Afebrile, vital signs stable Normal mental status, I doubt SBP or sepsis Will need elective paracentesis at some point during admission Labs: No leuks. H&h stable. Mild HyperK. SerumCr at level with known CKD. Endorsed to Dr Cramer as prior admitting doctor in April. 145pm [facility] bed Rhythm Strip Diag. Results EP Interpretation: yes Rate: 83 Rhythm: NSR, no PVC's, no ectopy Last Vital Signs Date Time Temp Pulse Resp B/P (MAP) Pulse Ox O2 Delivery O2 Flow Rate FiO2 05/11/17 12:47 98.0 81 18 140/86 99 Room Air Status: improved Disposition: ADMITTED INPATIENT Condition: Serious CARMENCITA CRESPO M.D. May 11, 2017 12:53
[2017-05-11 13:18] LABS: HEMATOCRIT 28.6 % (42.0-52.0); HEMOGLOBIN 9.4 G/DL (14.2-18.0); MEAN CORPUSCULAR VOLUME 100 FL (80-99); PLATELET COUNT 91 K/UL (150-450); RED BLOOD COUNT 2.85 M/UL (4.70-6.10); RED CELL DISTRIBUTION WIDTH 16.1 % (11.6-14.8); WHITE BLOOD COUNT 4.5 K/UL (4.8-10.8)
[2017-05-11 13:21] LABS: ANION GAP 12 mmol/L (5-15); BLOOD UREA NITROGEN 42 mg/dL (7-18); CALCIUM 7.6 MG/DL (8.5-10.1); CARBON DIOXIDE 15 MMOL/L (21-32); CHLORIDE 111 MMOL/L (98-107); CREATININE 2.4 MG/DL (0.55-1.30); POTASSIUM 5.3 MMOL/L (3.5-5.1); SODIUM 138 MMOL/L (136-145)
[2017-05-11 13:26] LABS: ALANINE AMINOTRANSFERASE 25 U/L (12-78); ALBUMIN/GLOBULIN RATIO 0.3 (1.0-2.7); ALKALINE PHOSPHATASE 166 U/L (46-116); ASPARTATE AMINO TRANSFERASE 37 U/L (15-37); BILIRUBIN,TOTAL 0.5 MG/DL (0.2-1.0)
[2017-05-11] MEDS ORDERED: LR 1000ml 1,000 ML IV STA (14:01)
[2017-05-11 14:30] VITALS: BP 153/87
--- NOTE | 2017-05-11 17:05 | Diagnostic Imaging Report ---
Indications: Ascites Technique: Ultrasound used to localize optimal puncture site. Sterile prepping and draping right lower quadrant. Local anesthesia with 1% lidocaine. Under real-time ultrasound guidance, puncture peritoneal space using paracentesis needle. Stylet removed. Catheter placed to vacuum bottle suction. Total 7.6 liters of cloudy yellow-brown fluid aspirated. Patient tolerated procedure well, without immediate complication. Findings: Followup sonography demonstrates complete resolution of peritoneal fluid. Impression: Successful ultrasound-guided paracentesis, yielding 7.6 liters of cloudy yellow-brown fluid
--- NOTE | 2017-05-11 17:15 | History and Physical Report ---
DATE OF ADMISSION: 05/11/2017 PERTINENT HISTORY: The patient is a 76-year-old man with cirrhosis, who presents with abdominal distention and increasing ascites. He has had several hospitalizations here before with ascites and hepatic encephalopathy. He also had an abscess of the right hip and had incision and drainage of the above. There was no bleeding at this time. He has a history of peripheral neuropathy and COPD. PAST SURGICAL HISTORY: Gallbladder and debridement a right hip abscess. MEDICATIONS: Ascorbic acid 500 mg daily, DSS 100 mg b.i.d., ferrous sulfate 325 mg b.i.d., lactulose 30 mL q.i.d., Creon one tablet with each meal, metformin 1000 mg b.i.d., Protonix 40 mg daily, Xifaxan 200 mg two tablets every eight hours, spironolactone one tablet daily, I believe that is 50 mg. ALLERGIES: None known. HABITS: He has been a smoker most of his adult life. There is a history of alcoholism. REVIEW OF SYSTEMS: HEENT: Vision and hearing is good. ENDOCRINE: He had a recent onset diabetes. PULMONARY: History of chronic obstructive pulmonary disease and bronchospasm. CARDIAC: No CHF, angina or PR. GASTROINTESTINAL: History of ascites and cirrhosis and hepatic encephalopathy. He has been on treatment for gastritis in the past. GENITOURINARY: No dysuria, hematuria, or kidney stones. NEUROLOGIC: History of peripheral neuropathy. MUSCULOSKELETAL: History of generalized weakness. PHYSICAL EXAMINATION: GENERAL: The patient is seen in the emergency department. VITAL SIGNS: Temperature 98 degrees, pulse 81, respirations 18, and blood pressure 140/86. HEENT: Ocular motions intact in all directions. Sclerae nonicteric. Oral mucosa slightly dry. NECK: No adenopathy or thyroid enlargement. LUNGS: Clear. HEART: Regular rhythm. No murmur. ABDOMEN: Moderate tense ascites, I am unable to feel liver or spleen. EXTREMITIES: Show 1+ edema. PERTINENT LABORATORY AND DIAGNOSTIC DATA: Sodium 138, potassium 5.3, chloride 111, CO2 15, BUN 42, and creatinine 2.4. Albumin is 2. White count 4.5, hemoglobin 9.4, and platelets 91. IMPRESSION: 1. Cirrhosis with symptomatic ascites. 2. History of hepatic encephalopathy. 3. Chronic kidney disease stage 3 and 4. 4. Probable hepatorenal syndrome. 5. Diabetes. 6. Borderline hyperkalemia. PLAN: If or paracentesis is stable, he may be able to return to his facility. Otherwise, he may need to be admitted for further evaluation and treatment. Case is discussed in detail with the emergency room physician. Chano Cramer M.D. DR: FLORENTINO JOB#: [id number] CC:
[2017-05-11 17:26] VITALS: BP 152/82
[2017-05-11 18:00] VITALS: BP 141/82
[2017-05-11 18:01] VITALS: BP 141/82
== END 2017-05-11 18:59 | disposition home or self-care (01) ==
LOC: EDBD 11:38 → EMR 12:30 → EDBEDREQ 14:16 → EMR 18:59
DX: R18.8 Other ascites (principal); K74.60 Unspecified cirrhosis of liver; I12.9 Hypertensive chronic kidney disease with stage 1 through stage 4 chronic kidney disease, or unspecified chronic kidney disease; N18.4 Chronic kidney disease, stage 4 (severe); E11.9 Type 2 diabetes mellitus without complications
CPT/HCPCS: 36415; 76942; 80053; 83690; 85007; 85025; 87081; 96360; 99284